=== PATIENT | male | born 1960 | race Caucasian/White ===

== ENCOUNTER 2017-12-02 09:37 | Day surgery (SDC) | payer OTHER ==
[2017-12-02] MEDS ORDERED: MIDAZOLAM 2 MG/2 ML VIAL IVP ONE (09:47)
[2017-12-02] MEDS ORDERED: BENZOCAINE UNIT DOSE SPRAY HURRICAINE MM ONE (09:47)
[2017-12-02] MEDS ORDERED: ATROPINE SULFATE 1 MG/10 ML SYR IVP ONE (09:47)
[2017-12-02] MEDS ORDERED: NS 500 ML IV ONE (09:47)
[2017-12-02] MEDS ORDERED: fentaNYL 100 MCG/2 ML INJ IVP ONE (09:47)
--- NOTE | 2017-12-02 10:10 | CPEKG ---
Heart Rate: 135 RR Interval: 444 QRSD Interval: 98 QT Interval: 292 QTC Interval: 438 QRS [place]: 63 T Wave [place]: 257 EKG Severity - ABNORMAL ECG - EKG Impression: JUNCTIONAL TACHYCARDIA EKG Impression: REPOL ABNRM SUGGESTS ISCHEMIA, ANT-LAT LEADS Electronically Signed By: Prasanth Calles 03-Dec-2017 07:41:09
[2017-12-02 11:01] LABS: INR 1.31 (0.83-1.16); PROTIME(PATIENT) 16.5 SEC (12.0-15.0)
--- NOTE | 2017-12-02 12:04 | PDANEPAE ---
ANE History of Present Illness 57 year olkd with tachycardia ANE Past Medical History - Pulmonary History Hx Sleep Apnea: No ANE Review of Systems Review of systems is: negative Review of Systems: ANE Patient History - Allergies Allergies/Adverse Reactions: No Known Allergies Allergy (Unverified 12/02/17 06:37) - Home Medications Home Medications: Atorvastatin Calcium 20 mg PO DAILY 12/02/17 [Last Taken 12/01/17 21:00] DILTIAZEM ER 240 mg PO DAILY 12/02/17 [Last Taken 12/02/17 08:00] Eliquis 5 mg PO BID 12/02/17 [Last Taken 12/02/17 08:00] Fish Oil Concentrate Softgel 1,000 mg PO DAILY 12/02/17 [Last Taken 11/30/17 08: 00] Multivitamins 1 tab PO DAILY 12/02/17 [Last Taken 11/30/17 08:00] Ocuvite Adult 50 Plus Softgel 1 tab PO DAILY 12/02/17 [Last Taken 11/30/17 08:00 ] Osteo Bi-Flex Caplet 1 tab PO DAILY 12/02/17 [Last Taken 11/30/17 08:00] Probiotic 1 cap PO DAILY 12/02/17 [Last Taken 11/30/17 08:00] - Smoking Hx Smoking Status: Never smoked ANE Labs/Vital Signs - Labs Result Diagrams: 12/02/17 10:10 - Vital Signs Height: 183 cm Weight: 91.2 kg ANE Physical Exam - Airway Neck exam: FROM Mallampati Score: Class 1 Mouth exam: normal dental/mouth exam - Pulmonary Pulmonary: no respiratory distress - Cardiovascular Cardiovascular: regular rate and rhythym - ASA Status ASA Status: II ANE Anesthesia Plan Anesthesia Plan: MAC
[2017-12-02] MEDS ORDERED: PROPOFOL 200 MG/20 ML VIAL ONE (12:06)
[2017-12-02] MEDS ORDERED: fentaNYL 100 MCG/2 ML INJ ONE (12:06)
--- NOTE | 2017-12-02 12:24 | PDHPUP ---
History & Physical Update H&P update statement: This history and physical update is based on an assessment of the patient which was completed after admission or registration (within 24 hours), but prior to the surgery/procedure. 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 all ? asked H&P update: H&P reviewed & patient examined H&P changes: none
--- NOTE | 2017-12-02 12:48 | CPEKG ---
Heart Rate: 87 RR Interval: 690 P-R Interval: 180 QRSD Interval: 86 QT Interval: 424 QTC Interval: 510 P [place]: 58 QRS [place]: 55 T Wave [place]: 66 EKG Severity - ABNORMAL ECG - EKG Impression: SINUS RHYTHM EKG Impression: SUPRAVENTRICULAR BIGEMINY EKG Impression: NONSPECIFIC T ABNORMALITIES, ANT-LAT LEADS EKG Impression: BORDERLINE PROLONGED QT INTERVAL Electronically Signed By: Prasanth Calles 03-Dec-2017 07:41:09
--- NOTE | 2017-12-02 13:08 | GCON ---
[f rep st] CONSULTATION CARDIOLOGY CONSULTATION REASON FOR CONSULTATION: Atrial flutter. PROCEDURE: Cardioversion. DISCUSSION: I discussed with the patient doing a cardioversion electively for his atrial flutter. We discussed the options. We discussed doing a transesophageal echocardiogram. He did not want to d o that. He has not missed any Eliquis dose for a very long time and feels like he does not need a tr ansesophageal echocardiogram. He understood the options and benefits and wanted to proceed without t hat. DESCRIPTION OF PROCEDURE: Informed consent was given. Anesthesia was present. A time-out was done and then we proceeded to do a synchronized cardioversion with 200 watt seconds of atrial flutter conv erting to normal sinus rhythm. There were no complications. The patient is waking up at this time. /[id number]/MODL
== END 2017-12-02 13:55 | disposition home or self-care (01) ==
LOC: FCATH 09:37
PROVIDERS: ATTEND Internal Medicine
PROC: 5A2204Z Restoration of Cardiac Rhythm, Single (ICD-10-PCS; principal; 2017-12-02)
DX: I48.91 Unspecified atrial fibrillation (principal); I48.92 Unspecified atrial flutter
CPT/HCPCS: J0461; J2704; J3010

== ENCOUNTER 2017-12-03 01:42 | Inpatient (IN) | payer OTHER ==
--- NOTE | 2017-12-03 01:58 | CPEKG ---
Heart Rate: 108 RR Interval: 556 P-R Interval: 180 QRSD Interval: 86 QT Interval: 324 QTC Interval: 435 P [place]: 60 QRS [place]: 74 T Wave [place]: 62 EKG Severity - BORDERLINE ECG - EKG Impression: SINUS TACHYCARDIA EKG Impression: PROBABLE LEFT ATRIAL ABNORMALITY EKG Impression: BORDERLINE T WAVE ABNORMALITIES Electronically Signed By: Prasanth Calles 03-Dec-2017 07:41:09
[2017-12-03] MEDS ORDERED: NS 1,000 ML IV ONE (02:02)
--- NOTE | 2017-12-03 02:02 | EDPHY ---
H & P Stated Complaint: SOB, D/C'd today after cardioversion from A-fib. Time Seen by Provider: 12/03/17 02:02 HPI/ROS: HPI CHIEF COMPLAINT: Shortness of breath. HISTORY OF PRESENT ILLNESS: This patient very pleasant 57-year-old male, he has a history of AFib, he is on Eliquis, he was cardioverted today around noon and was discharged around 2 o'clock in the afternoon. He rested today. He went to sleep around 8:30 p.m. And woke up around 11 o'clock feeling short of breath. States he was slightly anxious he went upstairs to check his pulse rate was 115. Clayton more short of breath and he could catch his breath so decided come the emergency room. Denies any chest pain. Denies fever. He does endorse a non productive cough has gotten worse today. Of note upon arrival to the emergency room is vitals heart rate 115, pulse ox 88 % on room air. Past Medical History: Atrial fibrillation status post cardioversion today. Past Surgical History: No significant surgical history Social History: Denies drugs alcohol tobacco. Family History: Noncontributory ROS REVIEW OF SYSTEMS: A comprehensive 10 point review of systems is otherwise negative aside from elements mentioned in the history of present illness. Exam Constitutional appears well nontoxic, triage nursing summary reviewed, vital signs reviewed, awake/alert. Eyes normal conjunctivae and sclera, EOMI, PERRLA. HENT normal inspection, atraumatic, moist mucus membranes, no epistaxis, neck supple/ no meningismus, no raccoon eyes. Respiratory good breath sounds bilaterally, bronchitic sounding cough, clear to auscultation bilaterally, normal breath sounds, no respiratory distress, no wheezing. Cardiovascular rate normal, regular rhythm, no murmur, no edema, distal pulses normal. Gastrointestinal soft, non-tender, no rebound, no guarding, normal bowel sounds, no distension, no pulsatile mass. Genitourinary no CVA tenderness. Musculoskeletal no midline vertebral tenderness, full range of motion, no calf swelling, no tenderness of extremities, no meningismus, good pulses, neurovascularly intact. Skin pink, warm, & dry, no rash, skin atraumatic. Neurologic awake, alert and oriented x 3, AAOx3, moves all 4 extremities equally, motor intact, sensory intact, CN II-XII intact, normal cerebellar, normal vision, normal speech. Psychiatric normal mood/affect. Heme/Lymph/Immune no lymphadenopathy. Differential diagnosis includes but is not limited to: ACS, atypical chest pain , pneumothorax, pneumonia, pulmonary embolism, aortic dissection, congestive heart failure, tumor, musculoskeletal pain, esophageal pain, GERD, peptic ulcer disease, pancreatitis Medical Decision Making: Plan for this patient IV establishment full media monitor obtain EKG to rule out acute coronary syndrome, chest x-ray to rule out pneumothorax, D-dimer,, electrolytes, gentle IV hydration and re-evaluate. I did offer him anxiety medicine as he appears anxious however he has declined. Re-evaluation: EKG interpretation by me on record in [employer] system. Impression time of EKG 1:56 a.m., sinus tachycardia rate of [address] elevation no ST depression no significant T-wave abnormalities. When compared to his EKG on 12/02/2017 at 12:46 p.m. slightly changed as his previous EKG had T-wave inversions V1 V2 V3. V4 and V5. This was a post cardioversion EKG. The EKG prior to that dated at 10:08 a.m. shows a atrial flutter rhythm. Patient chest x-ray reviewed shows significant cardiomegaly and pulmonary edema. The IV fluids initially ordered have been stopped. Patient be ordered Lasix. Waiting on blood work 316; patient's x-ray reviewed shows cardiomegaly and pulmonary edema. I have ordered the patient IV Lasix 40 mg. Patient be admitted to the hospital for hypoxia, CHF. Unclear cause of CHF his negative D-dimer nonischemic EKG. Negative troponin. Updated patient. Agrees for admission. 0327: Spoke with the hospitalist service Dr. Marques agrees to admit. 40MG IV lasix ordered. PAtient updated. Agrees for admission. 0335AM: Spoke with Dr. Clemente with Cards. Will see and evaluate patient. Source: Patient - Personal History Current Tetanus/Diphtheria Vaccine: Yes Current Tetanus Diphtheria and Acellular Pertussis (TDAP): Yes - Medical/Surgical History Hx Asthma: No Hx Chronic Respiratory Disease: No Hx Diabetes: No Hx Cardiac Disease: Yes Hx Renal Disease: No Hx Cirrhosis: No Hx Alcoholism: No Hx HIV/AIDS: No Hx Splenectomy or Spleen Trauma: No Other PMH: A-fib, high cholesterol - Social History Smoking Status: Never smoked Constitutional: Initial Vital Signs Temperature (C) 36.5 C 12/03/17 01:45 Heart Rate 113 H 12/03/17 01:45 Respiratory Rate 17 12/03/17 01:45 Blood Pressure 128/89 H 12/03/17 01:45 O2 Sat (%) 89 L 12/03/17 01:45 O2 Delivery Mode Room Air O2 (L/minute) 2 Allergies/Adverse Reactions: No Known Allergies Allergy (Unverified 12/02/17 06:37) Home Medications: Medication Instructions Recorded Apixaban [Eliquis] 5 mg PO BID 12/02/17 Atorvastatin Calcium [Lipitor 20 20 mg PO HS 12/02/17 mg (*)] C/E/Zn/Cu/OM3/DHA/EPA/LUT/ZEAX 1 each PO DAILY 12/02/17 [Preservision Areds 2 Softgel] Diltiazem HCl [Cartia XT 240mg] 240 mg PO DAILY 12/02/17 Multivitamins [Multivitamin (*)] 1 each PO DAILY 12/02/17 Marion-3 Fatty Acids [Fish Oil 1000 1,000 mg PO DAILY 12/02/17 mg (*)] Herbals/Supplements -Info Only 1 ea PO DAILY 12/03/17 Medical Decision Making - Data Points Laboratory Results: Laboratory Results 12/03/17 02:00 12/04/17 03:49 Medications Given: Acetaminophen (Tylenol) 650 mg PO Q4HRS PRN PRN Reason: Pain, Mild/Fever, Can Take PO Stop: 06/01/18 04:21 Last Admin: 12/05/17 11:39 Dose: 650 mg Amiodarone HCl (Amiodarone Hcl) 200 mg PO BID [facility] Stop: 06/03/18 20:59 Last Admin: 12/05/17 21:01 Dose: 200 mg Apixaban (Eliquis) 5 mg PO BID [facility] Stop: 06/01/18 20:59 Last Admin: 12/04/17 08:19 Dose: 5 mg Atorvastatin Calcium (Lipitor) 20 mg PO HS [facility] Stop: 06/01/18 20:59 Last Admin: 12/05/17 21:00 Dose: 20 mg Diltiazem HCl (Cardizem Immediate Release) 30 mg PO Q6HRS [facility] Stop: 06/01/18 17:59 Last Admin: 12/05/17 16:11 Dose: 30 mg Diltiazem HCl (Dilacor Xr) 240 mg PO DAILY [facility] Stop: 06/02/18 08:59 Last Admin: 12/05/17 08:03 Dose: 240 mg Furosemide (Lasix Injection) 40 mg IVP DAILY [facility] Stop: 06/01/18 10:59 Last Admin: 12/05/17 08:06 Dose: 40 mg Lisinopril (Zestril) 2.5 mg PO HS [facility] Stop: 06/02/18 20:59 Last Admin: 12/04/17 20:54 Dose: 2.5 mg Pqcgd-9-Qeuw Ethyl Esters (Fish Oil) 1,000 mg PO DAILY [facility] Stop: 06/02/18 08:59 Last Admin: 12/05/17 08:03 Dose: 1,000 mg Potassium Chloride (Klor-Con) 20 meq PO DAILY [facility] Stop: 06/01/18 10:59 Last Admin: 12/05/17 08:03 Dose: 20 meq Senna/Docusate Sodium (Senokot-S) 1 - 2 tab PO BID [facility] PRN Reason: Protocol Stop: 06/03/18 20:59 Last Admin: 12/05/17 21:02 Dose: Not Given Discontinued Medications Apixaban (Eliquis) 5 mg PO BID [facility] Stop: 06/01/18 08:59 Last Admin: 12/03/17 08:34 Dose: 5 mg Diltiazem HCl (Cardizem Er Q24hr) 240 mg PO DAILY [facility] Stop: 06/01/18 08:59 Last Admin: 12/03/17 08:34 Dose: 240 mg Furosemide (Lasix Injection) 40 mg IVP EDNOW ONE Stop: 12/03/17 02:50 Last Admin: 12/03/17 02:52 Dose: 40 mg Furosemide (Lasix) 20 mg PO ONCE ONE Stop: 12/03/17 18:46 Last Admin: 12/03/17 18:41 Dose: 20 mg Sodium Chloride (Ns) 1,000 mls @ 0 mls/hr IV EDNOW ONE; Wide Open PRN Reason: Protocol Stop: 12/03/17 02:03 Last Admin: 12/03/17 02:06 Dose: 1,000 mls Amiodarone HCl (Amiodarone Hcl) 200 mls @ 33.333 mls/hr IV ONCE ONE Stop: 12/04/17 15:44 Last Admin: 12/04/17 10:21 Dose: 200 mls Amiodarone HCl (Amiodarone Hcl) 100 mls @ 600 mls/hr IV ONCE ONE Stop: 12/04/17 09:33 Last Admin: 12/04/17 10:17 Dose: 100 mls Amiodarone HCl 540 mg/ (Dextrose) 300 mls @ 16.667 mls/hr IV ONCE ONE Stop: 12/05/17 10:14 Last Admin: 12/04/17 16:15 Dose: 300 mls Metoprolol Tartrate (Lopressor) 25 mg PO BID [facility] Stop: 06/02/18 08:59 Last Admin: 12/04/17 10:09 Dose: Not Given Departure - Departure Disposition: [facility] Acute Clinical Impression: Hypoxia CHF (congestive heart failure) Qualifiers: Heart failure type: other Qualified Code(s): I50.9 - Heart failure, unspecified Condition: Fair
[2017-12-03 02:20] LABS: CREATINE KINASE 78 IU/L (0-224)
[2017-12-03 02:23] LABS: PLATELET COUNT 192 10^3/uL (150-400)
[2017-12-03 02:31] LABS: PROTIME(PATIENT) 16.4 SEC (12.0-15.0)
[2017-12-03] MEDS ORDERED: FUROSEMIDE 40 MG/4 ML VIAL IVP ONE (02:49)
[2017-12-03] MEDS ORDERED: ACETAMINOPHEN 325 MG TAB PO PRN (04:22)
[2017-12-03] MEDS ORDERED: ONDANSETRON 4 MG/2 ML VIAL IVP PRN (04:22)
--- NOTE | 2017-12-03 05:25 | GHP ---
[f rep st] HISTORY AND PHYSICAL DATE OF ADMISSION: 12/03/2017 SOURCE: Patient provides history, appears reliable. His is at bedside and supplements details. EMR was reviewed and case discussed with ED provider. CHIEF COMPLAINT: Shortness of breath. HISTORY OF PRESENT ILLNESS: This is a 57-year-old gentleman with past medical history significant for atrial fibrillation, on anticoagulation with Eliquis, hyperlipidemia, who presents to the emergency department today with complaints of sudden onset of shortness of breath, increased anxiety, palpitations. Patient reports that he underwent a cardioversion earlier in the day with Dr. Brody Ho. The patient underwent the procedure between 10 and noon. Cardioversion was successful and patient converted to normal sinus rhythm with a rate in the low 200s. Patient reports that he was feeling well shortly after his procedure and upon discharge. Patient was in his normal state of health until approximately 11:30 when he found that he was having more difficulty sleeping than normal. Patient states he got up, went to go watch TV and when he went to walk up the stairs to go back to bed he developed sudden onset of shortness of breath and possibly some palpitations along with anxiety. Patient noted that his heart rate was in the 1-teens or more. He denies any associated chest pain. He did experience a brief incidence of some lightheadedness while going up the stairs, but otherwise did not have any syncope or presyncopal episode. Patient denies any associated edema. He has had a chronic dry cough for the past 3 months, which has not changed post procedure. He denies any positional association with his cough. Patient was previously on an BARBI, which was discontinued some time ago. His reports that when he is asleep he does not have intermittent coughing. He denies any associated fevers, chills. No recent sick contacts. REVIEW OF SYSTEMS: Negative except for a headache that patient developed after 5 p.m., now resolved. Otherwise, review of systems is negative. ALLERGIES: No known drug allergies. HOME MEDICATIONS: Eliquis 5 mg p.o. twice daily, diltiazem 240 mg p.o. daily ER form and atorvastatin 20 mg at nighttime. PAST MEDICAL HISTORY: Significant for atrial fibrillation status post cardioversion on 12/02/2017, hyperlipidemia. PAST SURGICAL HISTORY: Significant for ankle surgery. FAMILY HISTORY: Father with history of CAD at an elderly age, 81. Mother with history of CVA. SOCIAL HISTORY: Patient is . He predominantly resides in [place] with his . He does drink 2 glasses of wine every evening, but no use of illicit drugs or tobacco. CODE STATUS: Full. PHYSICAL EXAMINATION: VITAL SIGNS: Upon arrival to the emergency department this morning, blood pressure 128/89, heart rate 113, respiratory rate 17, O2 saturation 88% to 89% on room air with temperature 36.5. Current vitals; blood pressure 114/82, heart rate 103, respiratory rate 20, O2 saturation 92% on 3 L by nasal cannula. GENERAL: No acute distress, very pleasant adult gentleman with his at bedside. He is sitting on the gurney, is interactive, occasionally sarcastic. HEAD: Normocephalic, atraumatic. EYES: Extraocular muscles are intact. Pupils equal, round, react to light bilaterally and symmetric. No scleral icterus or conjunctival injection. Patient is wearing glasses. ENT: Mucous membranes appear moist. No oropharyngeal erythema or exudates. Dentition is intact. No nasal discharge. NECK: Supple. Trachea midline. CV: Regular rate and rhythm. Slightly tachycardic in the low 100s. Regular rhythm. No murmurs, rubs, or gallops. Slightly distant heart sounds. RESPIRATORY: Unlabored breathing. Patient with significantly reduced air movement in all lung [place] and this could possibly be related to some decreased inspiratory effort, but no wheezes or rhonchi are appreciated, possibly a few rales on the left lower base intermittently. ABDOMEN: Soft, nontender to palpation. No rebound, guarding, or masses appreciated. : No suprapubic tenderness to palpation. No Correia catheter in place. EXTREMITIES: Patient without any cyanosis, clubbing, or edema appreciated. Patient with 2+ pedal pulses bilaterally and symmetric. NEURO: Grossly nonfocal. No facial drooping. Moves all extremities. Strength intact. PSYCH: Affect slightly flat but patient is overall interactive and appropriate. Thought process, content, and questions are appropriate. LABORATORY STUDIES: WBC 7.46, H and H 15.4 and 45.8, MCV of 97.0, platelet count is 192, neutrophil percent 68.3. No bands. PT is 16.4, INR 1.30, PTT is 27.5. D-dimer is less than 0.027. Sodium is 143, potassium 4.3, chloride 110, CO2 is 23, anion gap 10, BUN 25, creatinine 0.9, GFR greater than 60, glucose is 120, calcium 9.0, magnesium 2.0 , total bilirubin 0.9, ALT 72, AST 34, alkaline phosphatase 83. CK 78, CK-MB is 2.07. Troponin 0.016. BTNP is 17.10. Total protein 6.4, albumin is 4.1, and lipase is 6.2. Images and reports reviewed including a chest x-ray showing cardiomegaly with pulmonary vascular congestion and evidence of fluid overload. No effusions or consolidations. EKG reviewed myself including those from earlier in the day during patient's cardioversion showing sinus tachycardia in the low 100s. Patient without any acute ST changes, some T-wave flattening in the lateral leads. QTc is 435. EKG from preprocedural in the morning showing atrial flutter, rate in the 130s with re-pole changes, post cardioversion is in normal sinus rhythm in the 80s with some bigeminy. Again, T-wave flattening is noted in the anterolateral leads. QTc is 510. ASSESSMENT AND PLAN: This is a very pleasant 57-year-old gentleman with longstanding history of atrial fibrillation/flutter status post cardioversion earlier in the day, who presents with complaints of dyspnea and palpitations. 1. Acute congestive heart failure NOS, likely secondary to uncontrolled atrial fibrillation. Patient has noted cardiomegaly. He reports that he had a recent echocardiogram completed outpatient at [facility]. Cardiology is consulted from the emergency department. Will plan to see the patient in the morning. Patient received Lasix 40 mg and has been continued to have good urine output, so will hold off on additional ordering of Lasix and await Cardiology recommendations. Also, will not add an order for a brand-new echo as I am not able to access outpatient records and will allow Cardiology time to evaluate and decide on echocardiogram. Patient reports that his respiratory status has improved and he continues to have good urine output. 2. Hypoxia. Patient did have low decreased oxygen 88% to 89% in the emergency department, has required some supplementation to maintain sats greater than 90. Will continue to titrate as patient voids and symptoms are improving. Patient 's D-dimer is negative and no evidence of acute PE at this time. Patient does have some evidence of pulmonary edema and continue with diuresis as noted above. 3. History of atrial fibrillation s/p cardioversion yesterday. Patient currently remains in normal sinus rhythm. He will be monitored on telemetry closely. Will plan to monitor continue patient's Eliquis dosing in the morning as patient states he took his evening dose. Will also resume patient's diltiazem. Cardiology consultation as noted above. 4. Hyperlipidemia. Patient took his evening statin and will plan to continue if he should stay additional day. 5. Fluid, electrolyte, nutrition. Patient did receive a little bit of IV fluid in the emergency department before all studies were turned. This was subsequently discontinued and patient has been doing well following Lasix. Electrolytes will be monitored and replaced if needed. A cardiac diet has been ordered. 6. Code status is full. 7. Disposition. Patient has been admitted to observation status on the PCU at this time pending further recommendations and evaluation by Cardiology. /[id number]/MODL MTDD
[2017-12-03] MEDS ORDERED: APIXABAN 5 MG TAB PO SCH (09:00)
[2017-12-03] MEDS ORDERED: DILTIAZEM CD 120 MG CAP PO SCH (09:00)
--- NOTE | 2017-12-03 11:41 | CPEKG ---
Heart Rate: 106 RR Interval: 566 P-R Interval: 176 QRSD Interval: 88 QT Interval: 332 QTC Interval: 441 P [place]: 62 QRS [place]: 90 T Wave [place]: 83 EKG Severity - ABNORMAL ECG - EKG Impression: SINUS TACHYCARDIA EKG Impression: ATRIAL PREMATURE COMPLEX EKG Impression: PROBABLE LEFT ATRIAL ABNORMALITY EKG Impression: BORDERLINE RIGHT AXIS DEVIATION EKG Impression: NONSPECIFIC T ABNORMALITIES, ANT-LAT LEADS SUGGESTIVE OF ISCHEMIA Electronically Signed By: Joseph Pina 03-Dec-2017 16:18:19
[2017-12-03] MEDS: FUROSEMIDE 40 MG/4 ML VIAL IVP SCH (11:45)
[2017-12-03] MEDS: POTASSIUM CL 20 MEQ TAB PO SCH (11:45)
--- NOTE | 2017-12-03 12:08 | GCON ---
[f rep st] CONSULTATION CARDIOVASCULAR CONSULTATION REASON FOR CONSULTATION: Shortness of breath. HISTORY OF PRESENT ILLNESS: Patient was admitted to the hospital last night with shortness of breath. He had a cardioversion yesterday from atrial flutter to normal sinus rhythm. His lungs were clear at that time. He got up in the middle of the night and had marked shortness of breath. He had a cardioversion. He did very well with that and then what happened to him was he came to the hospital about 12:30 in the morning with shortness of breath. He woke up maybe at 11:30 or 10:30, could not sleep for an hour or so, and then when he came back downstairs to go to sleep, he had shortness of breath and felt poorly. His brought him to the emergency room. He had 45 minutes of shortness of breath in total. He has had a chronic cough for several months, but had no fever, chills, cough. No chest pain, chest tightness, jaw pain, arm pain. No atrial fibrillation or flutter. No tachycardia. No palpitations. No lightheadedness, dizziness. No pleuritic chest pain. No nausea, vomiting, diarrhea, or constipation. No signs of upper respiratory tract infection. No hot, swollen joints. No rashes. No arthralgias. He has not had any trauma to the head, neck, or chest. No complications from his cardioversion. He has been on Eliquis and diltiazem and taking his medicines and doing quite well. He is feeling much better and after 45 minutes, the shortness of breath went away. He has known hyperlipidemia. He has a history of atrial flutter, atrial fibrillation. He had had a history of intermittent atrial fibrillation and has been on Eliquis since 06/2017, has not missed any doses. We have been talking about doing a cardioversion for a while and he decided to finally come in and get one done which we did do. I had talked to him about an electrophysiology consultation and he was not interested in that in the past. He had an echocardiogram that was relatively unremarkable in February of 2017. He had a nuclear stress test which was excellent. Ejection fraction was normal on both studies. CARDIAC RISK FACTORS: Negative for hypertension, diabetes mellitus. FAMILY HISTORY: , known coronary artery disease, smoking, hyperuricemia, obesity. . No history of unexplained sudden at a young age. SURGICAL HISTORY: No significant surgery. REVIEW OF SYSTEMS: 10-point review of systems negative except as noted above. ALLERGIES: None. MEDICATIONS: Atorvastatin, diltiazem ER 240, Eliquis 5 b.i.d., Ocuvite, multivitamins, probiotic. SOCIAL HISTORY: He lives with his and they are selling a home in [place] and selling a home in [place] and buying a home in [place]. He does not smoke. He does not drink significant amounts of alcohol. He works for [employer] and he likes to ski and is very active. PHYSICAL EXAMINATION: VITAL SIGNS: Blood pressure 120/70, heart rate 102 and regular, respiratory rate 12. He is on room air with a 91% sat. LUNGS: Rhonchi bilaterally. No rales, wheezing, or dullness. CARDIOVASCULAR: S1, S2. Soft systolic murmur left sternal border. No diastolic murmur. No S3, S4. No rubs. ABDOMEN: Soft, nontender, without masses. EXTREMITIES: No edema, inflammation, or ulceration. Calves negative. SKIN: Age-related changes. PSYCH: No obvious anxiety or depression. Echocardiogram on February 13 showed normal RV pressure, ejection fraction 65, normal LV systolic function. No significant valvular abnormalities. Mild tricuspid regurgitation. Nuclear stress test at that time, where he treadmill exercised for 15 minutes, showed no abnormalities whatsoever and an ejection fraction of 16%. David treadmill score 15. Chest x-ray shows pulmonary edema. D-dimer is negative. No elevated white count. No anemia and his other labs are attached. ASSESSMENT AND PLAN: 1. Acute pulmonary edema. 2. Atrial flutter. 3. Dyslipidemia. 4. Shortness of breath. 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 The cause is not clear by any means. There is nothing to suggest pulmonary embolic disease by history or by physical findings and the D-dimer is negative. There is nothing to suggest significant infection, pneumonia, viral infection causing his acute shortness of breath. Nothing to suggest endocarditis in his history. There is nothing to suggest an acute coronary syndrome and his David treadmill score less than a year ago was 15 with a normal nuclear study. At this point in time, we will repeat his echocardiogram. We will repeat his EKG. We will give him intravenous Lasix today and possibly tomorrow. I will add enalapril when he stabilizes a little bit and has some more urine output if his blood pressure maintains and is fine. We will see what his left ventricular dimensions, valvular function, and systolic and diastolic function are on the repeat echo that we have ordered. I will not add a beta giovanna. He is on diltiazem. He took a beta giovanna before and felt poorly. He is tachycardic right now and we will watch for the reason for that. He is not anemic. He is not bleeding. There is nothing to suggest a significant infection. We will follow him very closely. If anything changes or he deteriorates, we will be able to appropriately respond as needed. I spent a significant amount of time on multiple occasions in the room with his and he answering their questions. All their questions have been answered. Thank you very much. /[id number]/MODL MTDD
--- NOTE | 2017-12-03 14:29 | ECHO ---
[email or web address] [address] [address] Main: [phone] Fax: Transthoracic Echocardiogram Name: AMI DALY MR#: [id number] Study Date: 12/03/2017 Study Time: 11:08 AM Date of : 1960 Age: 57 year(s) Height: 188 cm (74 in.) Weight: 91.17 kg (201 lb.) BSA: 2.18 m2 Gender: Male Examination: Echo Indication: Acute CHF Image Quality: Contrast: Requested by: Anton Ho BP: 104 mmHg/82 mmHg Heart Rate: Rhythm: Indication: Acute CHF Procedure Staff Flight Technician: Niru Palma RDCS Reading Physician: [place] MD Requesting Provider: Conclusions: Mildly dilated left ventricle. The ejection fraction is estimated to be 40-45 %. The left atrium is mildly to moderately dilated. Mild to moderate mitral regurgitation. Cannot rule out bicuspid aortic valve. Mild tricuspid regurgitation is present. Measurements: Chambers Valvular Assessment AV/MV Valvular Assessment TV/PV Normal Normal Normal Name Value Range Name Value Range Name Value Range Ao Vidya (2D): 3.2 cm (1.4 cm-2.6 AV meanP mmHg ( - ) TR Vmax: 3.23 mm/s ( - ) cm) MV E Vmax: 0.76 m/s ( - ) TR PGmax: 42 mmHg ( - ) IVSd (2D): 0.5 cm (0.6 cm-1.1 syst. PAP: 47 mmHg ( - ) cm) LVDd (2D): 6.2 cm (4.2 cm-5.9 cm) LVDs (2D): 4.6 cm (2.1 cm-4 cm) LVPWd (2D): 0.8 cm (0.6 cm-1 cm) LVEF (BP): 47 % (>=55 %) EF Range: 40-45 % Continued Measurements: Chambers Valvular Assessment AV/MV Valvular Assessment TV/PV Name Value Name Value Name Value LADs: 4.8 cm MV E/E' Septal: 11.80 CVP (est.): 5 mmHg LADs Lon.8 cm MV E/E' Lateral: 9.00 Patient: AMI DALY Study Date: 12/03/2017 Page 1 of 2 11:08 AM LA Area: 28.3 cm2 Additional Vessels Name Value Ao Ascendin.4 cm Findings: Left Ventricle: Mildly dilated left ventricle. No LV hypertrophy. The ejection fraction is estimated to be 40-45 %. LV inferior/inferoseptal garcia appears hypokinetic.. Right Ventricle: Normal size right ventricle. Left Atrium: The left atrium is mildly to moderately dilated. Atrial septal bowing from left to right. Right Atrium: The right atrium is normal in size. Mitral Valve: The mitral valve is normal in appearance and function. Mild to moderate mitral regurgitation. Aortic Valve: Minimal aortic cusp calcification is noted. Cannot rule out bicuspid aortic valve. Tricuspid Valve: The tricuspid valve is normal in appearance and function. Mild tricuspid regurgitation is present. The pulmonary artery pressure is mildly increased. RVSP is 47mmHG.. Pulmonic Valve: The pulmonic valve is normal in appearance and function. Mild pulmonic valve regurgitation is noted. Aorta: The aorta is normal. Pericardium: No pericardial effusion. (No Signature Object) Patient: AMI DALY Study Date: 12/03/2017 Page 2 of 2 11:08 AM [id number]
--- NOTE | 2017-12-03 16:00 | ASMTCMCOM ---
CM Note CM Note Notes: Patient admitted for shortness of breath following cardioversion. He has a history of A fib and is anticoagulated on Eliquis. He is being monitored with EKG and IV lasix. Patient is normally very independent and active, lives with between [place] and the [facility]. I do not anticipate any discharge needs, but Case Management available should they arise. Date Signed: 12/03/2017 03:59 PM Electronically Signed By:Monica Monsalve RN
--- NOTE | 2017-12-03 16:35 | HOSPPROG ---
Hospitalist Progress Note Assessment/Plan: EVENING HOSPITALIST ROUNDS ON ADMISSION DAY DIAGNOSES: -acute congestive heart failure with pulmonary edema and enlargement of cardiac silhouette -uncontrolled atrial fibrillation rate -new systolic dysfunction EF 40-45% by echocardiogram with new inferior hypokinesis At this point the patient comes in with progressive exertional dyspnea symptoms that are fairly intermittent. My take is that because his often checks his pulse when he is feeling exertional dyspnea and finds at high there has been a conclusion that his fast heart rate is actually causing his problems. However they have never checked his pulse rate when he is not having exertional dyspnea and it seems just is likely a perhaps more likely to me that he is having congestive heart failure causing exertional dyspnea or coronary disease causing exertional dyspnea and that he is getting tachycardic at the same time he gets exertional dyspnea. His new wall motion abnormality in significant decrease in ejection fraction are significantly suggestive of some new cardiomyopathy a while it could be caused by AFib with tachycardia I would have expected him to come in with symptoms much sooner with persisting symptoms as opposed to having intermittent episodes like he is describing. PLANS: -continue IV diuresis -I am increasing his diltiazem dose from 240 per day to 360 per day at this time to get better rate control -will review echocardiogram result cardiology -I believe he needs further assessment of his coronary arteries as well as testing of thyroid function. As he had a normal myocardial perfusion imaging study in February eight months ago, I would consider the possibility that he has diffuse coronary disease which could provide a false negative result on myocardial perfusion imaging and that may not be useful way to study him. May need to consider angiography Total of approximately 50 min spent with the patient as at the bedside today in addition to the time previously spent by Dr. Marques today. I reviewed the case earlier in the day before his echocardiogram was done with Dr. Anton Ho SUBJECTIVE: The patient feels notably better after some diuresis here. As I talked to the story with this patient is his says he has been tachycardic with heart rate in the 130s for 3 months. 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 This is a brief episode of exertional dyspnea each time it happens and she sometimes measures his pulse during these episodes and finds it to be rapid. At no other time have they checked his pulse rate. At no other time has he felt exertional dyspnea. 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 He has been doing lots of other activity with no real exertional dyspnea other than the occasional brief episode as described. These episodes are possibly occurring closer together but not more severe or longer lasting. Then he suddenly developed much more significant dyspnea last evening going up some stairs and the symptoms did not resolve prompting his presentation to the ER here. Also notable is that the patient was using metoprolol for heart rate control previously, and a switch from metoprolol to diltiazem a couple weeks ago initially seemed to make him feel better however clearly by last night things were not better in fact much worse than they have ever been. 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 To me his EKGs show some ST and T-wave abnormalities not entirely inconsistent possible ischemia on the 1st EKG, with those changes disappearing on the 2nd EKG. I reviewed his current and prior echocardiogram results and the result of his stress test with myocardial perfusion imaging study from February 2017. The echo and perfusion studies last February showed ejection fraction 60% with no wall motion abnormalities. Today's echocardiogram shows 47% ejection fraction with inferior wall motion abnormality Objective: Vital Signs Temp Pulse Resp BP Pulse Ox 36.8 C 115 H 20 117/77 95 12/03/17 12:14 12/03/17 12:14 12/03/17 12:14 12/03/17 12:14 12/03/17 12:14 12/02/17 12/03/17 12/04/17 06:59 06:59 06:59 Intake Total 1100 2210 Output Total 1950 3150 Balance -850 -940 PT 16.4 SEC (12.0-15.0) H 12/03/17 02:00 INR 1.30 (0.83-1.16) H 12/03/17 02:00 ICD10 Worksheet Patient Problems: Problems Problem Status Onset CHF (congestive heart failure) Acute Hypoxia Acute
[2017-12-03] MEDS ORDERED: FUROSEMIDE 20 MG TAB PO ONE (18:45)
[2017-12-03] MEDS: DILTIAZEM 30 MG TAB PO SCH (19:05)
[2017-12-03] MEDS: APIXABAN 5 MG TAB PO SCH (20:00)
[2017-12-03] MEDS: ATORVASTATIN CALCIUM 20 MG TAB PO SCH (20:00)
[2017-12-03] MEDS ORDERED: ATORVASTATIN CALCIUM 20 MG TAB PO SCH (21:00)
[2017-12-03] MEDS ORDERED: DILTIAZEM 25 MG/5 ML VIAL IVP PRN (21:03)
--- NOTE | 2017-12-03 21:03 | CPEKG ---
Heart Rate: 140 RR Interval: 429 QRSD Interval: 84 QT Interval: 324 QTC Interval: 495 QRS [place]: 83 T Wave [place]: 16 EKG Severity - ABNORMAL ECG - EKG Impression: ATRIAL FIBRILLATION EKG Impression: PREMATURE COMPLEX WITH ABERRANT CONDUCTION (HANK PHENOMENON) EKG Impression: BORDERLINE T ABNORMALITIES, ANT-LAT LEADS EKG Impression: BORDERLINE PROLONGED QT INTERVAL EKG Impression: PROBABLE LEFT VENTRICULAR HYPERTROPHY Electronically Signed By: Joseph Pina 04-Dec-2017 09:29:59
[2017-12-04] MEDS: DILTIAZEM 30 MG TAB PO SCH ×5 (00:24→23:10)
[2017-12-04] MEDS: FUROSEMIDE 40 MG/4 ML VIAL IVP SCH (08:19)
[2017-12-04] MEDS: DILTIAZEM XR 240 MG CAP PO SCH (08:19)
[2017-12-04] MEDS: APIXABAN 5 MG TAB PO SCH (08:19)
[2017-12-04] MEDS: POTASSIUM CL 20 MEQ TAB PO SCH (08:19)
[2017-12-04] MEDS: OMEGA-3 FATTY ACIDS 1,000 MG CAP PO SCH (08:20)
--- NOTE | 2017-12-04 08:41 | CPEKG ---
Heart Rate: 149 RR Interval: 403 QRSD Interval: 80 QT Interval: 291 QTC Interval: 458 QRS [place]: 102 T Wave [place]: 9 EKG Severity - ABNORMAL ECG - EKG Impression: ATRIAL FIBRILLATION WITH RAPID VENTRICULAR RESPONSE EKG Impression: RIGHT AXIS DEVIATION EKG Impression: BORDERLINE T ABNORMALITIES, ANTERIOR LEADS EKG Impression: PROBABLE LEFT VENTRICULAR HYPERTROPHY Electronically Signed By: Joseph Pina 04-Dec-2017 09:27:40
[2017-12-04] MEDS ORDERED: METOPROLOL TARTRATE 25 MG TAB PO SCH (09:00)
[2017-12-04] MEDS ORDERED: AMIODARONE HCL 100 ML IV ONE (09:24)
--- NOTE | 2017-12-04 09:24 | HOSPPROG ---
Hospitalist Progress Note Assessment/Plan: DIAGNOSES: -acute congestive heart failure with pulmonary edema and enlargement of cardiac silhouette -uncontrolled atrial fibrillation rate -new systolic dysfunction EF 40-45% by echocardiogram with new inferior hypokinesis This morning and he has evidence of good resolution of his pulmonary edema with no dyspnea and clear lung exam, no peripheral edema. This is despite the fact that he now has atrial fib rate going the 140s to 150s instead of the 110s likely had yesterday, which is despite a notably higher dose of diltiazem started last evening. He was successfully cardioverted a couple days ago but the quickly went back to AFib such that he will not be able to be treated by cardioversion without anterior rhythmic. He does not tolerate the beta blockers and high-dose diltiazem is not effective for rate control with onset of pulmonary edema. Therefore it seems that adding antiarrhythmic is going to be the best choice for him at this point. I reviewed this with Dr. Ho and he agrees that starting amiodarone at this point is going to be important. Additionally as discussed yesterday the patient has new systolic dysfunction and wall motion abnormalities and new onset of pulmonary edema with worsening symptoms at home. This syndrome is suggestive to me of a strong possibility of coronary disease. I reviewed this again with Dr. Ho who agrees that we should assess his coronary disease at some point during his hospital stay. As the patient is stable in terms of his pulmonary edema which is improving and is not having signs of active ischemia or injury at this point, we can delay the coronary assessment until we have his AFib situation controlled or until he starts to have any further ischemic seeming troubles. PLANS: -repeat chest x-ray is pending will probably stop Lasix at this time depending on its appearance, but may need more Lasix particularly if we have a prolonged time getting him to cardioversion -continue diltiazem at 360 mg daily -begin amiodarone with IV bolus protocol -will discuss further with Dr. Ho after he sees the patient today -plan on assessment of his coronaries before he leaves the hospital or at any time if he starts showing more acute evidence of ischemia, Dr. Ho will review but I believe angiography will be the necessarily approach. 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: Currently AFib in the 140s, no ventricular arrhythmias Exam: alert oriented skin warm dry color ok resps not labored lungs clear at this time without rales heart regular abd soft nondistended nontender, bowel sounds present limbs warm, no edema iv site ok 12 lead EKG today I reviewed the tracing; rapid atrial fibrillation, some ST segment abnormalities that are subtle but potentially consistent with rate- related ischemia Laboratory data: Repeat metabolic panel and troponin are normal TSH pending Objective: Vital Signs Temp Pulse Resp BP Pulse Ox 36.7 C 147 H 12 111/86 H 94 12/04/17 04:20 12/04/17 07:21 12/04/17 07:21 12/04/17 07:21 12/04/17 07:21 Laboratory Results 12/04/17 03:49 12/03/17 12/04/17 12/05/17 06:59 06:59 06:59 Intake Total 1100 3740 Output Total 1950 6250 Balance -850 -2510 PT 16.4 SEC (12.0-15.0) H 12/03/17 02:00 INR 1.30 (0.83-1.16) H 12/03/17 02:00 - Time Spent With Patient Time Spent with Patient: greater than 35 minutes Time Spent with Patient: Greater than 35 minutes spent on this patients care, greater than 50% of time spent counseling, educating, and coordinating care regarding the above mentioned plan. ICD10 Worksheet Patient Problems: Problems Problem Status Onset CHF (congestive heart failure) Acute Hypoxia Acute
[2017-12-04] MEDS ORDERED: AMIODARONE HCL 200 ML IV ONE (09:45)
--- NOTE | 2017-12-04 12:13 | SOAPPROG ---
WINTER Progress Note Assessment/Plan: Assessment: Plan: 12/04/17 12:08 1. Heart failure with reduced ejection fraction 2. Acute on chronic congestive heart failure 3. Atrial flutter/atrial fibrillation 4. Shortness of breath 5. Regional wall motion abnormality 6. Dyslipidemia He has now on amiodarone converted to normal sinus rhythm and we will keep him on amiodarone. He is having his Eliquis held and 48 hours will be acceptable to go ahead with coronary angiography. He is having the angiogram because there is some question of on whether not he might have coronary artery disease His nuclear stress test last summer could have been reflective of balanced ischemia. Although he had excellent exercise tolerance and went 15 minutes on the treadmill. What I am personally helping his that his diminution of ejection fraction is due to a persistent tachycardia. However we can't be sure that and because of his risk factors and acute pulmonary edema he is a coronary angiogram so will get that on the schedule for Saturday. Dr. Rodriguez I did talk about whether not we needed to bridge him once the Eliquis starts to wear off before he has angiogram on saturday and felt both of us that he should do okay on being managed for short period of time off full anticoagulation and will be resumed right away after his angiogram or any definitive therapy that is angiogram dictates. He is on a statin. For his cardiomyopathy him to start a low dose of an BARBI-inhibitor tonight at bedtime. We are not using beta blockers which we would like to use with his cardiomyopathy until we started amiodarone he will get some beta-giovanna effect from the amiodarone which is good. But he could not tolerate metoprolol so we do not want start more beta-blockers right at this time for him. We would prefer him because of his heart failure and is possibility of coronary artery disease to be off a calcium channel giovanna for but for now the family and he both want to not switch to more beta-giovanna therapy. I spent a half an hour with the family going over the options and answering all her questions the son the daughter the for there. They are very concerned and the daughter and the are both very worried about him. He had questions that we answered as well and hopefully they are satisfied with the information so far. We will get electrophysiology to see him tomorrow do a consultation about long- term management for his flutter/fib. That order has been placed. He has had a good diuresis on a up to 2500 cc in 24 hours with the Lasix. Subjective: He is feeling well today. Last night in the evening he went back into atrial fibrillation He could feel a fluttering and was aware of what was going on. Earlier in the morning he had been in normal sinus rhythm. He is now in normal sinus rhythm as I am dictating this note he just converted. He had been in atrial fibrillation with rapid ventricular response was on increasing doses of diltiazem and then we on speaking with Dr. Rodriguez we put him on amiodarone. So now he is going to stay on IV loading of amiodarone and he feels okay. He has had no significant chest pain or chest tightness no jaw pain or arm pain No new neurologic symptoms no lightheadedness dizziness No nausea vomiting He is tolerating his current medications well. Objective: Vital Signs Temp Pulse Resp BP Pulse Ox 36.9 C 100 18 113/86 H 94 12/04/17 11:43 12/04/17 11:43 12/04/17 11:43 12/04/17 11:43 12/04/17 11:43 Laboratory Results 12/04/17 03:49 12/03/17 12/04/17 12/05/17 05:59 05:59 05:59 Intake Total 1100 3740 Output Total 1950 6250 Balance -850 -2510 PT 16.4 SEC (12.0-15.0) H 12/03/17 02:00 INR 1.30 (0.83-1.16) H 12/03/17 02:00 Physical Exam - Physical Exam General Appearance: alert, no apparent distress Respiratory: lungs clear, rhonchi Cardiac/Chest: systolic murmur, irregularly irregular, No JVD Abdomen: normal bowel sounds, non-tender, No soft Skin: warm/dry Extremities: No pedal edema, No calf tenderness Neuro/Psych: normal mood/affect ICD10 Worksheet Patient Problems: Problems Problem Status Onset CHF (congestive heart failure) Acute Hypoxia Acute
[2017-12-04] MEDS ORDERED: AMIODARONE HCL 540 MG in D5W 300 ML IV ONE (16:15)
[2017-12-04] MEDS: ATORVASTATIN CALCIUM 20 MG TAB PO SCH (20:55)
[2017-12-04] MEDS ORDERED: LISINOPRIL 2.5 MG TAB PO SCH (21:00)
[2017-12-05] MEDS: DILTIAZEM 30 MG TAB PO SCH ×3 (06:12→16:11)
[2017-12-05] MEDS: DILTIAZEM XR 240 MG CAP PO SCH (08:03)
[2017-12-05] MEDS: POTASSIUM CL 20 MEQ TAB PO SCH (08:03)
[2017-12-05] MEDS: OMEGA-3 FATTY ACIDS 1,000 MG CAP PO SCH (08:03)
[2017-12-05] MEDS: FUROSEMIDE 40 MG/4 ML VIAL IVP SCH (08:06)
--- NOTE | 2017-12-05 09:11 | PDCARPN ---
Cardiology Progress Note Chief Complaint: No cardiovascular complaints were voiced this morning. Assessment/Plan: Assessment: Patient is a 57 y/o male with history of newly noted congestive heart failure ( acute, systolic) with noted reduction in left ventricular systolic function (40- 45%), HLP, and atrial fib/flutter (on Eliquis, [id number] score of 1 for CHF), with ongoing issues related to accelerated heart rates in atrial fibrillation. Patient was cardioverted earlier this week and success was temporary. At present, the patient is in atrial fibrillation (rates of 115-120 bpm). No complaints of chest pains or pressure. No PND or orthopnea. Weights are down in comparison to admission weights. and son were present in the patient's room today. Eliquis is on hold for pending angiogram tomorrow. Ongoing Amiodarone (IV) with completion of load today. Will continue Amiodarone for the time being - this has kept the heart rates down somewhat. EP is reportedly going to see the patient today as well. ACEi therapy continues given the notable reduction in LVEF. Beta blockers have not been well tolerated (less bystolic, but this does little to nothing for rate control with the atrial fib/ flutter appreciated). Plan: (1) Continue hold on Eliquis as at present (2) Angiogram is planned for tomorrow (3) Bowel protocol today (4) Switch from IV Amio to PO Amio (200 twice per day) (5) Continue statins (6) EP consult is pending Subjective: No cardiovascular complaints today. Reviewed/Discussed With: family, hospitalist, multidisciplinary team Objective: Vital Signs (8 Hrs) Temp Pulse Resp BP Pulse Ox 12/05/17 08:03 114 H 12/05/17 07:57 102/64 12/05/17 07:37 36.7 C 95 20 83/69 L 92 12/05/17 06:12 124 H 100/80 12/05/17 03:28 36.4 C 124 H 17 98/73 L 94 Intake/Output (24 Hrs) 12/04/17 12/05/17 12/06/17 05:59 05:59 05:59 Intake Total 3740 2331 500 Output Total 6250 1525 350 Balance -2510 806 150 Intake: Oral (ml) 3740 1775 500 IV Infused (ml) 556 Amiodarone HCl 100 ml @ 100 600 mls/hr IV ONCE ONE Rx #:[id number] Amiodarone HCl 200 ml @ 200 33.333 mls/hr IV ONCE ONE Rx#:[id number] Amiodarone HCl 540 mg In 256 D5w 300 ml @ 16.667 mls/ hr IV ONCE ONE Rx#: [id number] Output: Urine (ml) 6250 1525 350 Toilet 6250 1525 350 Other: Weight 89.2 kg 89.7 kg Intake Quantity Yes Yes Sufficient Number of Voids Toilet 2 Result Diagrams: 12/03/17 02:00 12/04/17 03:49 Cardiac Labs: Cardiac Lab Results (72 Hrs) 12/04/17 03:49 Troponin I < 0.012 Telemetry: Atrial fibrillation with rapid ventricular response Echocardiogram: LVEF 40-45% - Physical Exam Constitutional: WDWN, healthy appearing, no apparent distress Eyes: PERRL, EOMI Ears, Nose, Mouth, Throat: moist mucous membranes Cardiovascular: irregularly irregular, No no murmurs, No no rubs, No no gallops , No systolic murmur, No jugular vein distention Peripheral Pulses: 2+: dorsalis-pedis (R), dorsalis-pedis (L) Respiratory: clear to auscultate bilat, no crackles, no wheezes Gastrointestinal: normoactive bowel sounds Skin: no rashes, no edema Musculoskeletal: no muscular tenderness, no joint effusions Neurologic: AAOx3, CN II-XII grossly intact Psychiatric: cooperative, interactive, following commands ICD10 Worksheet Patient Problems: Problems Problem Status Onset CHF (congestive heart failure) Acute Hypoxia Acute
[2017-12-05] MEDS ORDERED: LACTULOSE 20 GM/30 ML UDCUP PO PRN (09:39)
[2017-12-05] MEDS ORDERED: POLYETHYLENE GLYCOL 3350 17 GM PKT PO PRN (09:39)
[2017-12-05] MEDS ORDERED: MAGNESIUM HYDROXIDE 30 ML UDCUP PO PRN (09:39)
[2017-12-05] MEDS ORDERED: BISACODYL 10 MG SUPP PR PRN (09:39)
--- NOTE | 2017-12-05 17:05 | HOSPPROG ---
Hospitalist Progress Note Assessment/Plan: * Afib -failed cardioversion -rate still poorly controlled despite high dose PO diltiazem and PO amiodarone -uptitration of meds limited by hypotension -EP to consult -Pao on hold for cardiac cath * Acute on chronic systolic CHF - EF 40% -cardiac cath in am for ischemic eval - new inferior HK -may be rate related -BP not tolerating lisinopril - will hold -continue IV lasix * Hyperlipidemia -continue statin Subjective: Sats drop with amubulation and at night. No CP/SOB Objective: Vital Signs Temp Pulse Resp BP Pulse Ox 36.7 C 130 H 16 106/83 H 92 12/05/17 16:09 12/05/17 16:09 12/05/17 16:09 12/05/17 16:09 12/05/17 16:09 12/04/17 12/05/17 12/06/17 05:59 05:59 05:59 Intake Total 300 Output Total 1000 Balance -700 PT 16.4 SEC (12.0-15.0) H 12/03/17 02:00 INR 1.30 (0.83-1.16) H 12/03/17 02:00 tele reviewed - rapid afib CXR from admission reviewed, my personal interpretation is - CHF follow-up CXR reviewed - improved CHF ECHO reviewed - EF 40% Laboratory Tests 12/03/17 12/03/17 12/04/17 02:00 02:00 03:49 D-Dimer < 0.27 Creatinine 0.9 Troponin I 0.016 < 0.012 NT-Pro-B Natriuret Pep 1710 H TSH 12/04/17 03:49 D-Dimer Creatinine Troponin I NT-Pro-B Natriuret Pep TSH 1.550 - Physical Exam Constitutional: no apparent distress, appears nourished, not in pain Cardiovascular: irregularly irregular, tachycardia, No JVD, No edema Respiratory: no respiratory distress, no rales or rhonchi, clear to auscultation Gastrointestinal: normoactive bowel sounds, soft, non-tender abdomen, no palpable masses Skin: no rashes or abrasions, no fluctuance, no induration Neurologic: AAOx3, sensation intact bilaterally Psychiatric: interacting appropriately, not anxious, not encephalopathic, thought process linear ICD10 Worksheet Patient Problems: Problems Problem Status Onset CHF (congestive heart failure) Acute Hypoxia Acute
[2017-12-05] MEDS: ATORVASTATIN CALCIUM 20 MG TAB PO SCH (21:00)
[2017-12-05] MEDS: AMIODARONE HCL 200 MG TAB PO SCH (21:01)
[2017-12-05] MEDS: SENNOSIDES/DOCUSATE SODIUM TAB PO SCH (21:02)
[2017-12-06] MEDS: DILTIAZEM 30 MG TAB PO SCH ×5 (00:18→18:11)
[2017-12-06] MEDS: SENNOSIDES/DOCUSATE SODIUM TAB PO SCH (08:29)
[2017-12-06] MEDS: AMIODARONE HCL 200 MG TAB PO SCH ×2 (08:29→21:03)
[2017-12-06] MEDS: OMEGA-3 FATTY ACIDS 1,000 MG CAP PO SCH (08:29)
[2017-12-06] MEDS: DILTIAZEM XR 240 MG CAP PO SCH (08:29)
[2017-12-06] MEDS ORDERED: LIDOCAINE 1% 300 MG/30 ML SDV ONE (08:41)
[2017-12-06] MEDS ORDERED: IOPAMIDOL (ISOVUE-370) 150 ML BTL IV ONE (08:42)
[2017-12-06] MEDS ORDERED: MIDAZOLAM 2 MG/2 ML VIAL ONE (08:42)
[2017-12-06] MEDS ORDERED: fentaNYL 100 MCG/2 ML INJ ONE (08:42)
--- NOTE | 2017-12-06 09:02 | PDCARPN ---
Cardiology Progress Note Chief Complaint: No cardiovascular complaints over night. Assessment/Plan: Assessment: 12-06-17 Patient doing well today. Consent for angiography was obtained this morning. Risks and benefits of the procedure were discussed with patient and prior to signing of consent. No complaints of chest pains or pressure. Heart rates on telemetry were elevated with the discussion about risks (130-140 bpm). Questions about procedure were addressed. 12-05-17 Patient is a 57 y/o male with history of newly noted congestive heart failure ( acute, systolic) with noted reduction in left ventricular systolic function (40- 45%), HLP, and atrial fib/flutter (on Eliquis, [id number] score of 1 for CHF), with ongoing issues related to accelerated heart rates in atrial fibrillation. Patient was cardioverted earlier this week and success was temporary. At present, the patient is in atrial fibrillation (rates of 115-120 bpm). No complaints of chest pains or pressure. No PND or orthopnea. Weights are down in comparison to admission weights. and son were present in the patient's room today. Eliquis is on hold for pending angiogram tomorrow. Ongoing Amiodarone (IV) with completion of load today. Will continue Amiodarone for the time being - this has kept the heart rates down somewhat. EP is reportedly going to see the patient today as well. ACEi therapy continues given the notable reduction in LVEF. Beta blockers have not been well tolerated (less bystolic, but this does little to nothing for rate control with the atrial fib/ flutter appreciated). Plan: (1) Heart cath this morning (2) Continue statins (3) Will resume Eliquis post angiogram (4) Continue Amiodarone (5) Would like for EP to have a discussion post angiogram with patient (6) Continue therapy on PO CCB (would consider switch to more acceptable dosing , rather than Q6 hour dosing) - aware of issues related to hypotension Further recommendations post angiogram Subjective: No cardiovascular complaints. Reviewed/Discussed With: family Objective: Vital Signs (8 Hrs) Temp Pulse Resp BP Pulse Ox 12/06/17 07:02 36.8 C 130 H 20 115/81 H 95 12/06/17 06:32 98 96/68 L 12/06/17 05:54 98 96/68 L 12/06/17 04:39 36.7 C 101 H 16 96/68 L 95 Intake/Output (24 Hrs) 12/05/17 12/06/17 12/07/17 05:59 05:59 05:59 Intake Total 700 Output Total 2650 Balance -1950 Intake: Oral (ml) 700 Output: Urine (ml) 2650 Toilet 2650 Other: Weight 89.8 kg Intake Quantity npo Sufficient Number of Voids Toilet 3 Number of Stools Toilet 1 Result Diagrams: 12/03/17 02:00 12/06/17 04:23 Telemetry: atrial fibrillation with RVR (to 140 bpm) - Physical Exam Constitutional: WDWN, healthy appearing, no apparent distress Eyes: PERRL, EOMI Ears, Nose, Mouth, Throat: moist mucous membranes Cardiovascular: irregularly irregular (tachycardia), pulses symmetric bilat, No jugular vein distention Peripheral Pulses: 2+: dorsalis-pedis (R), dorsalis-pedis (L) Respiratory: clear to auscultate bilat Skin: no rashes, no edema Musculoskeletal: no muscular tenderness Neurologic: AAOx3, CN II-XII grossly intact Psychiatric: cooperative, interactive, following commands ICD10 Worksheet Patient Problems: Problems Problem Status Onset CHF (congestive heart failure) Acute Hypoxia Acute
--- NOTE | 2017-12-06 09:03 | PDPROPOC ---
Sedation Plan of Care Sedation Plan of Care: vital signs stable, mental status noted, patient educated of risks, benefits, alternatives, patient can tolerate sedation ASA Classification: ASA 2 Planned drugs: fentanyl, midazolam Mallampati Score: Class 2 Mallampati Reference Image: Patient passed 3-3-2 rule?: Yes
[2017-12-06] MEDS ORDERED: NITROGLYCERIN 0.4 MG BTL SL PRN (09:10)
[2017-12-06] MEDS ORDERED: DIAZEPAM 5 MG TAB PO ONE (09:10)
[2017-12-06] MEDS ORDERED: TEMAZEPAM 15 MG CAP PO PRN (09:10)
[2017-12-06] MEDS ORDERED: diphenhydrAMINE 25 MG CAP PO ONE (09:10)
[2017-12-06] MEDS ORDERED: ACETAMINOPHEN 325 MG TAB PO PRN (09:10)
[2017-12-06] MEDS ORDERED: FAMOTIDINE 20 MG TAB PO ONE (09:10)
[2017-12-06] MEDS ORDERED: NS 1,000 ML IV SCH (09:15)
--- NOTE | 2017-12-06 09:57 | PDMN ---
Medical Necessity Medical necessity: Patient meets inpatient criteria per physician note and [facility] Cardiology GRG (uncontrolled atrial fib w/RVR with new acute congestive heart failure and pulmonary edema, new systolic dysfunction EF 40-45% with inf wall hypokinesis by echo; LOS > 2 midnights for ongoing IV Lasix diuresis, IV amiodarone loading, then transition to p.o. amiodarone, additional cardiac eval/ pending angiography.). .
--- NOTE | 2017-12-06 10:44 | PDDXCAT ---
Diagnostic Cath Note - . 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 No luminal irregularities were noted. LAD: Medium sized vessel without appreciable luminal irregularities. One principal diagonal with a smallish second diagonal. No branch vessel CAD noted. LCX: Medium sized vessel with one principal OM (multiple branches) and a smallish OM2. No luminal irregularities were noted. RCA: Dominant vessel. No luminal irregularities were noted. PDA and DOYLE are large and without irregularities as well. Ramus: Smallish vessel with branches. No luminal irregularities were noted. EDP: 18 mm Hg LVEF: 25-30% Wall motion: Global hypokinesis was noted. Complications: none Estimated blood loss: <50ml Closure method: Angioseal Assessment: Patient is a 57 y/o male with questionable duration of atrial fib/ flutter with non ischaemic CMP (angiography without CAD noted), ejection fraction of 25-30%. CHERELLE with cardioversion earlier in the week without retirement success noted. Angiogram, as stated above, without CAD noted. Plan: Would continue Amiodarone, orally, resume Eliquis this afternoon. Patient can eat. Would schedule patient for CHERELLE with possible cardioversion tomorrow morning - rational being (a) would like to have Eliquis on board, and (b) would like to have angiogram stick site with some time of "heal" prior to CHERELLE/ cardioversion. Would continue CCB therapy, but consider BID instead of QID. Statins to continue (with outpatient reassessment of cholesterol and LFTs). I feel that this is the safer approach s/p angiogram - to allow the groin access to have some time to heal prior to subjecting the patient to CHERELLE and possible cardioversion. Intervention: none Patient Problems: Problems Problem Status Onset CHF (congestive heart failure) Acute Hypoxia Acute
[2017-12-06] MEDS ORDERED: HYDROCODONE/APAP 5/325 TAB PO PRN (11:13)
[2017-12-06] MEDS ORDERED: OXYCODONE/APAP 5/325 TAB PO PRN (11:13)
[2017-12-06] MEDS ORDERED: ONDANSETRON 4 MG/2 ML VIAL IVP PRN (11:13)
[2017-12-06] MEDS ORDERED: DIGOXIN 125 MCG TAB PO ONE (11:15)
[2017-12-06] MEDS: POTASSIUM CL 20 MEQ TAB PO SCH (14:27)
[2017-12-06] MEDS: FUROSEMIDE 40 MG TAB PO SCH (14:29)
--- NOTE | 2017-12-06 14:51 | ASMTCMCOM ---
CM Note CM Note Notes: Pts case discussed in morning rounds. Pt had a left heart cath today. The plan remains the same. Pt will d/c independent when medically stable. No therapies ordered at this time. CM available for changes. Plan: Independent Date Signed: 12/06/2017 02:50 PM Electronically Signed By:ADAM Tee
--- NOTE | 2017-12-06 16:25 | CPEKG ---
Heart Rate: 99 RR Interval: 606 P-R Interval: 172 QRSD Interval: 86 QT Interval: 360 QTC Interval: 462 P [place]: 66 QRS [place]: 89 T Wave [place]: 81 EKG Severity - BORDERLINE ECG - EKG Impression: SINUS RHYTHM EKG Impression: BORDERLINE T WAVE ABNORMALITIES EKG Impression: SINUS RHYTHM HAS REPLACED ATRIAL FIBRILLATION NOTED ON PRIOR ECG Electronically Signed By: Guru Pang 07-Dec-2017 09:28:38
--- NOTE | 2017-12-06 17:47 | HOSPPROG ---
Hospitalist Progress Note Assessment/Plan: * Afib -now back NSR - consider cardioversion in am if recurs -PO diltiazem and PO amiodarone -uptitration of meds limited by hypotension - did well with IV digoxin x 1 -outpatient EP consult with Dr. Wiley for ablation -resume Eliquis * Acute on chronic systolic CHF - EF 25% -non-ischemic - likely rate related -restart lisinopril 2.5 mg if BP tolerates -change to PO lasix * Hyperlipidemia -continue statin * Hypotension -DC additional diltiazem as now NSR -consider digoxin if further rate control needed Subjective: No complaints Objective: Vital Signs Temp Pulse Resp BP Pulse Ox 36.3 C 131 H 20 103/82 H 94 12/06/17 15:05 12/06/17 15:05 12/06/17 15:05 12/06/17 15:05 12/06/17 15:05 Laboratory Results 12/06/17 04:23 12/05/17 12/06/17 12/07/17 05:59 05:59 05:59 Intake Total 700 900 Output Total 2650 575 Balance -1950 325 PT 16.4 SEC (12.0-15.0) H 12/03/17 02:00 INR 1.30 (0.83-1.16) H 12/03/17 02:00 d/w Dr. Hampton and Dr. Pang - cardioversion in am if afib cardiac cath report reviewed - no CAD tele - NSR now EKG viewed, my personal interpretation is - NSR - Physical Exam Constitutional: no apparent distress, appears nourished, not in pain Cardiovascular: regular rate and rhythym, no murmur, rub, or gallop Respiratory: no respiratory distress, no rales or rhonchi, clear to auscultation Gastrointestinal: normoactive bowel sounds, soft, non-tender abdomen, no palpable masses Skin: no rashes or abrasions, no fluctuance, no induration Neurologic: AAOx3, sensation intact bilaterally Psychiatric: interacting appropriately, not anxious, not encephalopathic, thought process linear ICD10 Worksheet Patient Problems: Problems Problem Status Onset CHF (congestive heart failure) Acute Hypoxia Acute
[2017-12-06] MEDS: ATORVASTATIN CALCIUM 20 MG TAB PO SCH (21:03)
[2017-12-06] MEDS: APIXABAN 5 MG TAB PO SCH (21:03)
[2017-12-07] MEDS: SENNOSIDES/DOCUSATE SODIUM TAB PO SCH ×2 (01:03→09:11)
[2017-12-07 04:50] LABS: INR 1.25 (0.83-1.16); PROTIME(PATIENT) 15.9 SEC (12.0-15.0)
[2017-12-07] MEDS ORDERED: ATROPINE SULFATE 1 MG/10 ML SYR IVP ONE (06:00)
[2017-12-07] MEDS ORDERED: NS 1,000 ML IV ONE (06:00)
[2017-12-07 07:33] VITALS: BP 100/79; PULSE 96; RESP 16; TEMP 98.4; O2SAT 97
[2017-12-07] MEDS: FUROSEMIDE 40 MG TAB PO SCH (09:09)
[2017-12-07] MEDS: AMIODARONE HCL 200 MG TAB PO SCH (09:09)
[2017-12-07] MEDS: POTASSIUM CL 20 MEQ TAB PO SCH (09:09)
[2017-12-07] MEDS: APIXABAN 5 MG TAB PO SCH (09:09)
[2017-12-07] MEDS: DILTIAZEM XR 240 MG CAP PO SCH (09:10)
[2017-12-07] MEDS: OMEGA-3 FATTY ACIDS 1,000 MG CAP PO SCH (09:10)
--- NOTE | 2017-12-07 10:32 | PDCARPN ---
Cardiology Progress Note Chief Complaint: No cardiovascular complaints today. Fair sleep overnight Assessment/Plan: Assessment: 12-07-17 Patient doing well today. No events overnight. Patient was able to maintain normal sinus rhythm/sinus tachycardia overnight. Ambulation today without elevation to heart rates noted. No PND or orthopnea. No dyspnea (a symptom noted post cardioversion earlier in the week). Angiography revealed no CAD and ongoing suppression of the LVEF. 12-06-17 Patient doing well today. Consent for angiography was obtained this morning. Risks and benefits of the procedure were discussed with patient and prior to signing of consent. No complaints of chest pains or pressure. Heart rates on telemetry were elevated with the discussion about risks (130-140 bpm). Questions about procedure were addressed. 12-05-17 Patient is a 57 y/o male with history of newly noted congestive heart failure ( acute, systolic) with noted reduction in left ventricular systolic function (40- 45%), HLP, and atrial fib/flutter (on Eliquis, [id number] score of 1 for CHF), with ongoing issues related to accelerated heart rates in atrial fibrillation. Patient was cardioverted earlier this week and success was temporary. At present, the patient is in atrial fibrillation (rates of 115-120 bpm). No complaints of chest pains or pressure. No PND or orthopnea. Weights are down in comparison to admission weights. and son were present in the patient's room today. Eliquis is on hold for pending angiogram tomorrow. Ongoing Amiodarone (IV) with completion of load today. Will continue Amiodarone for the time being - this has kept the heart rates down somewhat. EP is reportedly going to see the patient today as well. ACEi therapy continues given the notable reduction in LVEF. Beta blockers have not been well tolerated (less bystolic, but this does little to nothing for rate control with the atrial fib/ flutter appreciated). Plan: (1) Continue statins for HLP (2) Would continue Eliquis for the post conversion (spontaneous) time of one month, and the off chance that the patient will revert to atrial fib/flutter (3) Would continue CCB therapy (long acting and once per day better than the Q6 dosing) (4) Continue Amiodarone at 200 mg twice per day (5) Low dose Digoxin (125 mcg) should continue as at present (6) Would have limited echo next week to reassess LVEF with return to normal sinus rhythm (7) Would have the patient seen by EP next week for discussion about options Subjective: No cardiovascular complaints this morning Reviewed/Discussed With: family, hospitalist, multidisciplinary team Objective: Vital Signs (8 Hrs) Temp Pulse Resp BP Pulse Ox 12/07/17 07:32 36.9 C 96 16 100/79 97 12/07/17 04:00 36.5 C 86 18 95/77 L 94 Intake/Output (24 Hrs) 12/06/17 12/07/17 12/08/17 05:59 05:59 05:59 Intake Total 700 1863 Output Total 2650 1675 Balance -1950 188 Intake: Oral (ml) 700 1563 IV Intake (ml) 300 Output: Urine (ml) 2650 1675 Toilet 2650 1675 Other: Weight 89.8 kg 89.5 kg Intake Quantity npo Yes Sufficient Number of Voids Toilet 3 1 Number of Stools Toilet 1 1 Result Diagrams: 12/03/17 02:00 12/07/17 04:00 Telemetry: Sinus rhythm - Physical Exam Constitutional: WDWN, healthy appearing, no apparent distress Eyes: PERRL, EOMI Ears, Nose, Mouth, Throat: moist mucous membranes Cardiovascular: regular rate and rhythm, no murmurs, no rubs, no gallops, pulses symmetric bilat, No jugular vein distention Peripheral Pulses: 2+: dorsalis-pedis (R), dorsalis-pedis (L) Respiratory: clear to auscultate bilat, no crackles, no wheezes Gastrointestinal: normoactive bowel sounds Skin: no rashes, no edema Musculoskeletal: no muscular tenderness, no joint effusions Neurologic: AAOx3, CN II-XII grossly intact Psychiatric: cooperative, interactive, following commands ICD10 Worksheet Patient Problems: Problems Problem Status Onset CHF (congestive heart failure) Acute Hypoxia Acute
--- NOTE | 2017-12-07 10:46 | ASDISCHSUM ---
Discharge Information Plan Status:Home with No Needs Medically Cleared to Leave: Discharge Date: CM D/C Disposition:Home, Routine, Self-Care ADT D/C Disposition:Home, Routine, Self-Care Projected Discharge Date: Transportation at D/C: Discharge Delay Reason: Follow-Up Date: Discharge Slot: Final Diagnosis: Placement Information Patient Contact Information Contact Name:REYNA Relationship: Address:[address] [place] [address] Work Phone: City:[facility] Phone: State/Zip Code:[place] [address] Email: Financial Information Financial Class:HMO and PPO Plans Primary Plan Desc:[employer] Primary Plan Number:[id number] Secondary Plan Desc: Secondary Plan Number: Assessment Information [facility] Progress Note CM Note CM Note Notes: Patient admitted for shortness of breath following cardioversion. He has a history of A fib and is anticoagulated on Eliquis. He is being monitored with EKG and IV lasix. Patient is normally very independent and active, lives with between [place] and [facility]. I do not anticipate any discharge needs, but Case Management available should they arise. Date Signed: 12/03/2017 03:59 PM Electronically Signed By:Monica Monsalve RN [facility] CM Progress Note CM Note CM Note Notes: Pts case discussed in morning rounds. Pt had a left heart cath today. The plan remains the same. Pt will d/c independent when medically stable. No therapies ordered at this time. CM available for changes. Plan: Independent Date Signed: 12/06/2017 02:50 PM Electronically Signed By:ADAM Tee Intervention Information
--- NOTE | 2017-12-07 10:47 | ASMTCMCOM ---
CM Note CM Note Notes: Pt. to d/c independently today. Date Signed: 12/07/2017 10:46 AM Electronically Signed By:Saadia Joseph LCSW
--- NOTE | 2017-12-07 12:05 | GDS ---
[f rep st] DISCHARGE SUMMARY DISCHARGE DIAGNOSIS: 1. Rapid atrial fibrillation. 2. Acute on chronic systolic congestive heart failure, ejection fraction 25%. 3. Hyperlipidemia. HISTORY: Heath Mann is a 57-year-old male who has long-standing atrial fibrillation. He had a failed cardioversion as an outpatient. He presented with worsening pulmonary edema. He was admitt ed to the hospital and was successfully diuresed with IV Lasix. EF was found to be only 25%. He und erwent a cardiac catheterization which showed normal coronary arteries. His cardiomyopathy is felt t o be rate related. His atrial fibrillation was difficult to control. He continued his usual oral diltiazem dose as well as adding amiodarone. His blood pressures were low and he remained persistently hypotensive in a rap id atrial fibrillation. The plan was for repeat attempt at cardioversion with hope of improved succe ss now that he has been amiodarone loaded. On the night prior to admission, he spontaneously convert ed himself back to normal sinus rhythm and cardioversion was not necessary. He will meet with Dr. Wiley this week for discussion of ablation. For now, he will discharge on oral diltiazem, oral amiodarone and oral digoxin, as well as continuation of his Eliquis. We will attempt to low-dose lisinopril gi griselda his low ejection fraction if his blood pressure can tolerate it. DISCHARGE MEDICATIONS: Please see computerized record for full detailed list. New medications: 1. Amiodarone 200 mg p.o. twice daily. 2. Digoxin 0.125 mg p.o. daily. 3. Lasix 40 mg p.o. daily. 4. Lisinopril 2.5 mg p.o. daily. 5. Potassium 10 mEq p.o. daily. Continued medications include: 1. Eliquis 5 mg p.o. twice daily. 2. Diltiazem 240 mg p.o. daily. 3. Lipitor 20 mg p.o. at bedtime. ADDITIONAL DISCHARGE INSTRUCTIONS: Follow up with Dr. Wiley in 3 to 5 days. TIME SPENT: Greater than 30 minutes' time spent arranging this discharge. Patient was seen and exam ined by me on the day of discharge. /[id number]/MODL
== END 2017-12-07 11:30 | disposition home or self-care (01) | DRG 287 ==
LOC: F2W 04:30 → OBSVTOIN 12-05 10:56
PROVIDERS: ADMIT Family Medicine; ATTEND Internal Medicine
PROC: 4A023N7 Measurement of Cardiac Sampling and Pressure, Left Heart, Percutaneous Approach (ICD-10-PCS; principal; 2017-12-06)
PROC: B2111ZZ Fluoroscopy of Multiple Coronary Arteries using Low Osmolar Contrast (ICD-10-PCS; principal; 2017-12-06)
PROC: B2151ZZ Fluoroscopy of Left Heart using Low Osmolar Contrast (ICD-10-PCS; principal; 2017-12-06)
DX: I50.23 Acute on chronic systolic (congestive) heart failure (principal); I48.91 Unspecified atrial fibrillation; I42.9 Cardiomyopathy, unspecified; E78.5 Hyperlipidemia, unspecified; R09.02 Hypoxemia; Z79.01 Long term (current) use of anticoagulants
CPT/HCPCS: 96374; C1760; G0378; J0282; J1644; J1940; J2250; J3010; Q9967

== ENCOUNTER 2017-12-16 06:44 | Observation (INO) | payer OTHER ==
[2017-12-16] MEDS ORDERED: NS 1,000 ML IV ONE (06:46)
--- NOTE | 2017-12-16 07:09 | CPEKG ---
Heart Rate: 135 RR Interval: 444 P-R Interval: 196 QRSD Interval: 86 QT Interval: 208 QTC Interval: 312 P [place]: 256 QRS [place]: 39 T Wave [place]: 257 EKG Severity - ABNORMAL ECG - EKG Impression: Atrial flutter Electronically Signed By: Silvano Wiley 16-Dec-2017 08:07:06
[2017-12-16 07:21] LABS: PLATELET COUNT 191 10^3/uL (150-400)
[2017-12-16 07:30] LABS: INR 1.05 (0.83-1.16); PROTIME(PATIENT) 13.9 SEC (12.0-15.0)
[2017-12-16] MEDS ORDERED: HEPARIN 10,000 UNIT/10 ML MDV (1,000 UNIT/ML) ONE ×2 (08:10→09:17)
[2017-12-16] MEDS ORDERED: LIDOCAINE 1% 300 MG/30 ML SDV ONE (08:10)
[2017-12-16] MEDS ORDERED: BUPIVACAINE 0.5% 30 ML SDV ONE (08:10)
[2017-12-16] MEDS ORDERED: ISOPROTERENOL HCL/D5W 0.2 MG/50 ML BAG IV ONE (08:11)
[2017-12-16] MEDS ORDERED: MIDAZOLAM 2 MG/2 ML VIAL IVP ONE (08:26)
--- NOTE | 2017-12-16 08:30 | PDANEPAE ---
ANE History of Present Illness CHERELLE flutter ablation ANE Past Medical History - Cardiovascular History Hx Hypertension: No Hx Arrhythmias: Yes Hx Chest Pain: No Hx Coronary Artery / Peripheral Vascular Disease: No Hx CHF / Valvular Disease: No Hx Palpitations: No - Pulmonary History Hx COPD: No Hx Asthma/Reactive Airway Disease: No Hx Recent Upper Respiratory Infection: No Hx Oxygen in Use at Home: No Hx Sleep Apnea: No - Endocrine History Hx Diabetes: No Hypothyroid: No Hyperthyroid: No Obesity: no - Chronic Pain History Chronic Pain: No ANE Review of Systems Review of Systems: - Exercise capacity METS (RN): 4 METS - Systems Constitutional: Reports: no symptoms Respiratory: Reports: other (CHF december 11 Txed with lasix. ) Skin: Reports: rash (Mild rash arms cause unknown) Neurological: Reports: no symptoms ANE Patient History - Allergies Allergies/Adverse Reactions: No Known Allergies Allergy (Unverified 12/02/17 06:37) - Home Medications Home Medications: Apixaban [Eliquis] 5 mg PO BID 12/02/17 [Last Taken 12/13/17] Atorvastatin Calcium [Lipitor 20 mg (*)] 20 mg PO HS 12/02/17 [Last Taken 1 Day Ago ~12/15/17] C/E/Zn/Cu/OM3/DHA/EPA/LUT/ZEAX [Preservision Areds 2 Softgel] 1 each PO DAILY [Last Taken 1 Day Ago ~12/15/17] Diltiazem HCl [Cartia XT 240mg] 240 mg PO DAILY 12/02/17 [Last Taken 1 Day Ago ~ 12/15/17] Multivitamins [Multivitamin (*)] 1 each PO DAILY 12/02/17 [Last Taken 1 Day Ago ~12/15/17] [place]-3 Fatty Acids [Fish Oil 1000 mg (*)] 1,000 mg PO DAILY 12/02/17 [Last Taken 1 Day Ago ~12/15/17] Herbals/Supplements -Info Only 1 ea PO DAILY 12/03/17 [Last Taken 1 Day Ago ~04/26] - NPO status NPO Status: no food or drink >8 hours - Anes Hx Anes Hx: no prior problems - Smoking Hx Smoking Status: Never smoked Marijuana use: No - Alcohol Use Alcohol Use: Other (Wine 2/day) - Family Anes Hx Family Anes Hx: none ANE Labs/Vital Signs - Labs Result Diagrams: 12/16/17 07:10 12/16/17 07:10 - Vital Signs Height: 182.88 cm Weight: 88.451 kg ANE Physical Exam - Airway Neck exam: FROM Mallampati Score: Class 2 Mouth exam: normal dental/mouth exam - Pulmonary Pulmonary: no respiratory distress, clear to auscultation - Cardiovascular Cardiovascular: regular rate and rhythym, no murmur, rub, or gallop, tachycardia - ASA Status ASA Status: III ANE Anesthesia Plan Anesthesia Plan: general endotracheal anesthesia
[2017-12-16] MEDS ORDERED: ROCURONIUM 100 MG/10 ML VIAL ONE (08:34)
[2017-12-16] MEDS ORDERED: DEXAMETHASONE 4 MG/ML VIAL ONE (08:34)
[2017-12-16] MEDS ORDERED: GLYCOPYRROLATE 0.2 MG/1 ML VIAL ONE (08:34)
[2017-12-16] MEDS ORDERED: fentaNYL 250 MCG/5 ML INJ ONE (08:34)
[2017-12-16] MEDS ORDERED: ROCURONIUM 50 MG/5 ML VIAL ONE (08:34)
[2017-12-16] MEDS ORDERED: PROPOFOL/EMULSION 500 MG/50 ML BOTTLE IV ONE ×2 (08:34)
[2017-12-16] MEDS ORDERED: PHENYLEPHRINE HCL 100 MCG/ML SYR ONE (08:35)
[2017-12-16] MEDS ORDERED: ONDANSETRON 4 MG/2 ML VIAL ONE (08:35)
--- NOTE | 2017-12-16 08:43 | PDGENHP ---
History & Physical Chief Complaint: soa History of Present Illness: recurrent afl, cmp Relevant Physical Exam: s1s2 tach, cta, a03 Cardiorespiratory Assessment: AFL with cardiomyopathy. Recurrent despite amiodarone and dccv. For RF ablation
[2017-12-16] MEDS ORDERED: HEPARIN/DEXTROSE 25,000 UNIT/500 ML BAG ONE (09:17)
[2017-12-16] MEDS ORDERED: PROTAMINE SULFATE 50 MG/5 ML VIAL IVP ONE (10:22)
[2017-12-16] MEDS ORDERED: SUGAMMADEX SODIUM 200 MG/2 ML VIAL IVP ONE (10:26)
[2017-12-16] MEDS ORDERED: ONDANSETRON 4 MG/2 ML VIAL IVP PRN (10:47)
[2017-12-16] MEDS ORDERED: HYDROmorphone HCL/NS 0.5 MG/ML SYR IVP PRN (10:47)
[2017-12-16] MEDS ORDERED: NALOXONE HCL 0.4 MG/ML INJ IVP PRN (10:47)
[2017-12-16] MEDS ORDERED: HYDROCODONE/APAP 5/325 TAB PO PRN (10:47)
[2017-12-16] MEDS ORDERED: fentaNYL 100 MCG/2 ML INJ IVP PRN (10:47)
[2017-12-16] MEDS ORDERED: ACETAMINOPHEN 500 MG TAB PO PRN (10:47)
--- NOTE | 2017-12-16 10:50 | POSTANESTH ---
Post Anesthetic Evaluation Cardiovascular Status: Normal, Stable Respiratory Status: Normal, Stable Level of Consciousness/Mental Status: Can Participate in Eval Pain Control: Adequate, Prn Tx Ordered Nausea/Vomiting Control: Adequate, Prn Tx Ordered Complications Possibly Related to Anesthesia: None Noted (Normal sinus.)
--- NOTE | 2017-12-16 11:15 | EPPROC ---
Electrophysiology Procedure Note: ELECTROPHYSIOLOGIC STUDY AND CATHETER MEDIATED ABLATION FOR SUBEUSTACHIAN ISTHMUS DEPENDENT COUNTERCLOCKWISE ATRIAL FLUTTER: INDICATION: Recurrent atrial flutter Cardiomyopathy, likely tachycardia mediated PROCEDURES PERFORMED: 33894-27 EP evaluation with RA/RV/LA pace/record, with arrhythmia induction 49844-80 EP evaluation with RA/RV pace record, insert/reposition catheter, with arrhythmia induction 76552 SVT ablation 84626 3D mapping Fluoroscopy Catheters & Anesthesia: The patient arrived in the Electrophysiology Laboratory in the fasting state. The right clavicular region, right groin, and left groin area were prepped and draped in the usual sterile manner. Anesthesiologist Dr. Ashley Rhodes administered general anesthesia. Appropriate non-invasive blood pressure, pulse oximetry and end-tidal CO2 monitoring was established. All catheters were placed percutaneously using the modified Seldinger technique , and advanced into position under fluoroscopic guidance. One #7 Argentine deflectable catheter with 10 pairs of electrodes was placed via the left femoral vein into the coronary sinus. One # 7 Argentine Halo catheter was inserted through the L femoral vein and was placed at the tricuspid annulus. Heparin was administered to keep ACT > 250 seconds. Programmed stimulation was performed from the right atrium, coronary sinus ( left atrium) and right ventricle. Parahisian pacing demonstrated all retrograde conduction over the AV node. On arrival to the Electrophysiology Laboratory the patient was in atrial flutter , CL 235 ms . Entrainment mapping from lateral TA, septal TA, proximal CS and distal CS confirmed cavotricuspid isthmus dependent atrial flutter. Post entrainment cardioversion was performed due to low LVEF and SBP in 70s. In preparation for ablation of typical atrial flutter, a high-resolution 3D (3 dimensional) Carto electroanatomical map of the sub-Eustachian isthmus and right atrium was obtained during pacing of the posterolateral coronary sinus. For ablation of typical atrial flutter, Mobi sheath was placed in the right atrium. A #8 Argentine deflectable quadrapolar electrode catheter (2mm-5mm-2mm spacing) with 3.5 mm irrigated tip electrode and location sensor for the Miira mapping system was inserted in the long sheath and advanced to the right atrium. Radiofrequency applications were applied between the tricuspid annulus at 0630 oclock as seen in the SEUN view and the inferior vena cava. This achieved conduction block across the isthmus. Following ablation of the atrial flutter, programmed atrial stimulation was performed in the baseline state . No atrial arrhythmias were inducible post ablation. Post ablation, a high-resolution electroanatomical map of the sub-Eustachian isthmus was obtained during pacing of the posterolateral coronary sinus. This confirmed conduction block across the sub-Eustachian isthmus. Bidirectional block was also confirmed by pacing. Septal to lateral conduction time 155 ms. The catheters were removed. Protamine was administered. Sheaths were removed in the EP lab after applying subcutaneous purse string suture. The patient was transferred to the cardiovascular holding area in stable condition. There were no apparent complications. CONCLUSIONS: 1. Cavotricuspid isthmus dependent counterclockwise atrial flutter. 2. Successful catheter mediated ablation of cavotricuspid isthmus achieving bi -directional conduction block across cavotricuspid isthmus. 3. No atrial arrhythmias inducible post ablation. 4. No apparent complications. Patient Problems: Problems Problem Status Onset Hypoxia Acute CHF (congestive heart failure) Acute
--- NOTE | 2017-12-16 11:27 | CPEKG ---
Heart Rate: 65 RR Interval: 923 P-R Interval: 184 QRSD Interval: 92 QT Interval: 332 QTC Interval: 346 P [place]: 57 QRS [place]: 71 T Wave [place]: 58 EKG Severity - ABNORMAL ECG - EKG Impression: SINUS ARRHYTHMIA, RATE 55-81 EKG Impression: NONSPECIFIC T ABNORMALITIES, ANTERIOR LEADS Electronically Signed By: Arlet Norris 16-Dec-2017 12:03:49
[2017-12-16] MEDS: CARVEDILOL 6.25 MG TAB PO SCH (18:03)
[2017-12-16] MEDS ORDERED: ATORVASTATIN CALCIUM 20 MG TAB PO SCH (21:00)
[2017-12-16] MEDS ORDERED: LISINOPRIL 2.5 MG TAB PO SCH (21:00)
[2017-12-16] MEDS: APIXABAN 5 MG TAB PO SCH (21:07)
[2017-12-17 04:50] LABS: PLATELET COUNT 178 10^3/uL (150-400)
[2017-12-17 04:59] LABS: INR 1.14 (0.83-1.16); PROTIME(PATIENT) 14.8 SEC (12.0-15.0)
[2017-12-17 05:13] LABS: CREATINE KINASE 46 IU/L (0-224)
[2017-12-17 07:52] VITALS: BP 101/61
[2017-12-17] MEDS ORDERED: FUROSEMIDE 40 MG TAB PO SCH (09:00)
[2017-12-17] MEDS ORDERED: Herbals/Supplements -Info Only PO SCH (09:00)
[2017-12-17] MEDS ORDERED: MULTIVITAMINS 1 EACH TAB PO SCH (09:00)
[2017-12-17] MEDS ORDERED: POTASSIUM CL 10 MEQ TAB PO SCH (09:00)
--- NOTE | 2017-12-17 09:00 | CPEKG ---
Heart Rate: 83 RR Interval: 723 P-R Interval: 176 QRSD Interval: 98 QT Interval: 440 QTC Interval: 517 P [place]: 70 QRS [place]: 80 T Wave [place]: 51 EKG Severity - ABNORMAL ECG - EKG Impression: SINUS RHYTHM EKG Impression: NONSPECIFIC T ABNORMALITIES, ANT-LAT LEADS EKG Impression: PROLONGED QT INTERVAL Electronically Signed By: Arlet Norris 17-Dec-2017 11:05:35
[2017-12-17] MEDS: CARVEDILOL 6.25 MG TAB PO SCH (09:15)
[2017-12-17] MEDS: APIXABAN 5 MG TAB PO SCH (09:15)
--- NOTE | 2017-12-17 10:29 | ECHO ---
[email or web address] [address] [address] Main: [phone] Fax: [email or web address] Echocardiogram Name: AMI DALY MR#: [id number] Study Date: 12/17/2017 Study Time: 09:37 AM Date of : 1960 Age: 57 year(s) Height: 182.9 cm (72 in.) Weight: 88.45 kg (195 lb.) BSA: 2.11 m2 Gender: Male Examination: Echo Indication: Post EP study Image Quality: Contrast: Requested by: Naty Ware BP: / Heart Rate: Rhythm: Indication: Post EP study Procedure Staff Sql Data Architect: Niru Palma [facility] Reading Physician: Yoni Stafford MD Requesting Provider: Conclusions: Mildly dilated left ventricle. The ejection fraction is estimated to be 50-55 %. The left atrium is mildly to moderately dilated. The right atrium is mildly dilated. Mild mitral valve regurgitation is present. Mild tricuspid regurgitation is present. The pulmonary artery pressure is normal. No pericardial effusion. Measurements: Chambers Valvular Assessment AV/MV Valvular Assessment TV/PV Normal Normal Normal Name Value Range Name Value Range Name Value Range Ao Vidya (MM): 3.4 cm (2.2 cm-3.7 AV Vmax: 1.54 m/s (1 m/s-1.7 TR Vmax: 2.77 mm/s ( - ) cm) m/s) TR PGmax: 31 mmHg ( - ) IVSd (2D): 0.8 cm (0.6 cm-1.1 AV maxP mmHg ( - ) syst. PAP: 36 mmHg ( - ) cm) AV meanP mmHg ( - ) LVDd (2D): 5.8 cm (4.2 cm-5.9 MV E Vmax: 0.88 m/s ( - ) cm) MV A Vmax: 0.82 m/s ( - ) LVDs (2D): 4.6 cm (2.1 cm-4 MV E/A: 1.07 ( - ) cm) LVPWd (2D): 0.9 cm (0.6 cm-1 cm) LVEF (BP): 53 % (>=55 %) EF Range: 50-55 % Continued Measurements: Chambers Valvular Assessment AV/MV Valvular Assessment TV/PV Name Value Name Value Name Value Patient: AMI DALY Study Date: 12/17/2017 Page 1 of 2 09:37 AM LADs: 5.3 cm MV E/E' Septal: 9.10 CVP (est.): 5 mmHg LADs Lon.7 cm MV E/E' Lateral: 7.80 LA Area: 30.7 cm2 Findings: Left Ventricle: Mildly dilated left ventricle. No LV hypertrophy. The ejection fraction is estimated to be 50-55 %. Right Ventricle: Normal size right ventricle. Left Atrium: The left atrium is mildly to moderately dilated. Atrial septal bowing from left to right. Right Atrium: The right atrium is mildly dilated. Mitral Valve: The mitral valve is normal in appearance and function. Mild mitral valve regurgitation is present. Aortic Valve: Minimal aortic cusp calcification is noted. Aortic valve opens well.. Tricuspid Valve: The tricuspid valve is normal in appearance and function. Mild tricuspid regurgitation is present. The pulmonary artery pressure is normal. Pulmonic Valve: The pulmonic valve is normal in appearance and function. Mild pulmonic valve regurgitation is noted. Aorta: The aorta is normal. Pericardium: No pericardial effusion. (No Signature Object) Patient: AMI DALY Study Date: 12/17/2017 Page 2 of 2 09:37 AM D:_[id number]
--- NOTE | 2017-12-17 10:45 | ASDISCHSUM ---
Discharge Information Plan Status:Home with No Needs Medically Cleared to Leave:12/17/2017 Discharge Date:12/17/2017 CM D/C Disposition:Home, Routine, Self-Care ADT D/C Disposition:Home, Routine, Self-Care Projected Discharge Date:12/17/2017 Transportation at D/C: Discharge Delay Reason: Follow-Up Date:12/17/2017 Discharge Slot: Final Diagnosis: Placement Information Patient Contact Information Contact Name:REYNA Relationship: Address:[address] [place] [address] [address] Work Phone: City:[place] Alternate Phone: State/Zip Code:[place] [address] Email: Financial Information Financial Class:HMO and PPO Plans Primary Plan Desc:[employer] [place] [employer] Primary Plan Number:[id number] Secondary Plan Desc: Secondary Plan Number: Assessment Information Intervention Information
--- NOTE | 2017-12-17 13:01 | GDS ---
[f rep st] DISCHARGE SUMMARY DISCHARGE DIAGNOSES: 1. Atrial flutter status post atrial flutter ablation. 2. Atrial fibrillation. 3. Cardiomyopathy, likely tachycardic induced. His EF improved from 20% preablation to 50% postabla tion. HISTORY OF PRESENT ILLNESS: For a detailed H and P, please see prior dictation. Briefly, the patien paige is a 57-year-old male with a history of atrial flutter. He had not been feeling well since and was seen by Dr. Ho in November. He underwent a CHERELLE guided cardioversion and had pulmonary stephanie ma that resolved with diuresis. He presented back to our office in December and was found to be back in atrial flutter, and an echo showed his ejection fraction to have declined to 25% to 30%. He was see n by Dr. Saurabh keith, whose prior EKGs were reviewed. He had been found to have both atrial flutter and atrial fibrillation. Ultimately, they decided to proceed with an EP study and ablation for atri al flutter only. HOSPITAL COURSE: This was done on December 16 and was successful. The patient denied any chest discom fort or palpitations postprocedure. Echocardiogram the following day showed an improvement in his ejection fraction from 20% to 50%. His EKG the following day revealed normal sinus rhythm. His troponin peaked at 0.222. He was monitored on telemetry and remained in normal sinus rhythm. His EKG does show ST-T wave changes diffusely. Physical examination: In general, the patient appears in no acute distress. Vitals: Blood pressure 101/61, heart rate 81, oxygen saturation of 94% on room air. Afebrile. Lungs clear to auscultation . No wheezes, rhonchi, or crackles auscultated. Cardiac: Regular rate and rhythm, without any murm urs, rubs, or gallops appreciated. Extremities: He has pea-sized abnormality of the left groin, wit hout any significant hematoma or bleeding. His groin is soft around the pea-sized abnormality. He d enies any significant discomfort of the groins. DISCHARGE MEDICATIONS: His medications have been adjusted. He will begin Coreg 6.25 mg twice daily. Diltiazem and digoxin have been discontinued. He is to continue Eliquis 5 mg twice daily, potassiu m 10 mEq daily, lisinopril 2.5 mg daily, Lasix 40 mg daily, herbal supplements daily, Lipitor 20 mg d aily, fish oil 1000 mg daily, multivitamin daily. PLAN: The patient is currently stable ready for discharge home. He has been given groin precautions . He is scheduled for an echo on 01/02 at 9:15 at our office. He is also scheduled to follow up bouchra Wiley on January 08 at 2:30. He is aware that he is to continue Coreg and lisinopril for his car diomyopathy. He will continue Eliquis for CVA prophylaxis. Greater than 30 minutes was spent coordinating the patient's care today. /[id number]/MODL
== END 2017-12-17 11:42 | disposition home or self-care (01) ==
LOC: FCATH 06:44 → F2W 10:47
PROVIDERS: ADMIT Internal Medicine Cardiovascular Disease; ATTEND Internal Medicine Cardiovascular Disease
PROC: B245ZZ4 Ultrasonography of Left Heart, Transesophageal (ICD-10-PCS; principal; 2017-12-16)
PROC: 02563ZZ Destruction of Right Atrium, Percutaneous Approach (ICD-10-PCS; principal; 2017-12-16)
PROC: 02K83ZZ Map Conduction Mechanism, Percutaneous Approach (ICD-10-PCS; principal; 2017-12-16)
PROC: 5A1213Z Performance of Cardiac Pacing, Intermittent (ICD-10-PCS; principal; 2017-12-16)
DX: I48.92 Unspecified atrial flutter (principal); I48.0 Paroxysmal atrial fibrillation; I42.9 Cardiomyopathy, unspecified; Z79.01 Long term (current) use of anticoagulants; Z87.891 Personal history of nicotine dependence
CPT/HCPCS: 93005; 93306; 93312; 93613; 93621; 93653; G0378; C1731; C1732; C1766; J1100; J1644; J2250; J2370; J2405; J2704; J2720; J3010

== ENCOUNTER 2017-12-18 18:42 | Emergency (ER) | payer OTHER ==
--- NOTE | 2017-12-18 19:01 | EDPHY ---
H & P Stated Complaint: L groin hematoma s/p ablation Time Seen by Provider: 12/18/17 18:59 HPI/ROS: HPI: This is a 49-year-old male who presents with Chief Complaint: L groin hematoma s/p ablation Location: Left groin Quality: Hematoma Duration: 24 hr Signs and Symptoms: no fever, no nausea, no vomiting, no hematemesis, no blood in stool, no abdominal bloating, no diarrhea, no back pain, no urinary symptoms , + testicular/groin pain, no indigestion, no chest pain, no shortness of breath Timing: Acute, worsening Severity: [id number]-[id number] Context: Patient has a history AFib, a flutter, status post cardiac ablation on Saturday by Dr. Wiley; On . Discharge home yesterday afternoon. Patient reports that per his instructions he has been walking but not performing any strenuous activity. Yesterday evening he noticed mild bruising in his left groin today the area has extended and now there is mild to moderate pain that worsens with palpation. He also states that he has left groin or testicular pain. Denies any penile discharge. Denies any blood in his urine. Modifying Factors: None Comment: ROS: see HPI Constitutional: No fever, no chills, no weight loss Eyes: No blurred vision Respiratory: No shortness of breath, no cough Cardiovascular: No chest pain, no palpitations Gastrointestinal: No nausea, no vomiting, no diarrhea, no hematemesis, no blood in stool Genitourinary: No dysuria, no blood in urine Extremities: No myalgias, no edema Neurologic: No weakness, no numbness Skin: No rashes, no petechiae Hematologic: No bruising, no bleeding MEDICAL/SURGICAL/SOCIAL HISTORY: Medical history: A-fib, a-flutter, high cholesterol, acute heart failure cardiac ablation Surgical history: Denies Social history: . Employed. CONSTITUTIONAL: Polite and cooperative adult male, awake and alert, no obvious distress HEENT: Atraumatic and normocephalic, PERRL, EOMI. Tympanic membranes clear. Oropharynx clear, no exudate and moist pink mucosa. Airway patent. No lymphadenopathy. No meningismus. Cardiovascular: Normal S1/S2, regular rate, regular rhythm, without murmur rub or gallop. PULMONARY/CHEST: Symmetrical and nontender. Clear to auscultation bilaterally. Good air movement. No accessory muscle usage. Male : circumcised penis, bilateral descended testes, no testicular swelling, no testicular masses, no penile discharge, no lesions, negative Prehn's sign. Left groin; inguinal canal tenderness to palpation with black and yellow ecchymosis extending into the left upper thigh. No hernia appreciated. ABDOMEN: Soft, nondistended, nontender, no rebound, no guarding, no peritoneal signs, no masses or organomegaly. No CVAT. EXTREMITIES: 2/2 pulses, strength 5/5, no deformities, no clubbing, no cyanosis or edema. NEUROLOGICAL: no focal neuro deficits. GCS 15. SKIN: Warm and dry, no erythema. no rash. Good capillary refill. Source: Patient Exam Limitations: No limitations - Personal History Current Tetanus/Diphtheria Vaccine: Yes Current Tetanus Diphtheria and Acellular Pertussis (TDAP): Yes - Medical/Surgical History Hx Asthma: No Hx Chronic Respiratory Disease: No Hx Diabetes: No Hx Cardiac Disease: Yes Hx Renal Disease: No Hx Cirrhosis: No Hx Alcoholism: No Hx HIV/AIDS: No Hx Splenectomy or Spleen Trauma: No Other PMH: A-fib, a-flutter, high cholesterol, acute heart failure cardiac ablation, - Social History Smoking Status: Never smoked Constitutional: Initial Vital Signs Temperature (C) 37.3 C 12/18/17 18:52 Heart Rate 88 12/18/17 18:52 Respiratory Rate 16 12/18/17 18:52 Blood Pressure 111/76 12/18/17 18:52 O2 Sat (%) 96 12/18/17 18:52 O2 Delivery Mode Room Air Allergies/Adverse Reactions: No Known Allergies Allergy (Unverified 12/18/17 18:51) Home Medications: Medication Instructions Recorded Atorvastatin Calcium [Lipitor 20 20 mg PO HS 12/02/17 mg (*)] C/E/Zn/Cu/OM3/DHA/EPA/LUT/ZEAX 1 each PO DAILY 12/02/17 [Preservision Areds 2 Softgel] Multivitamins [Multivitamin (*)] 1 each PO DAILY 12/02/17 [place]-3 Fatty Acids [Fish Oil 1000 1,000 mg PO DAILY 12/02/17 mg (*)] Herbals/Supplements -Info Only 1 ea PO DAILY 12/03/17 Furosemide [Lasix 40 MG (*)] 40 mg PO DAILY #30 tab 12/07/17 Lisinopril [Zestril 2.5 mg (*)] 2.5 mg PO HS #30 tab 12/07/17 Potassium Chloride 10 meq PO DAILY #30 tab.er.prt 12/07/17 Apixaban [Eliquis] 5 mg PO BID #60 tab 12/17/17 Carvedilol [Coreg (*)] 6.25 mg PO BIDMEAL #60 tab 12/17/17 Medical Decision Making - Diagnostics Imaging Results: Imaging Impressions Pelvis CT 12/18/17 19:08 Impression: No evidence of catheterization access site complication. No retroperitoneal hematoma. Findings were communicated by telephone with Dr. Paola Davis at 12/18/2017 21 :25 ED Course/Re-evaluation: Labs including coags and CT pelvis scan ordered No signs of neurovascular compromise/tenting of skin/compartment syndrome/ extremities and joints examined above and below area of concern and are neurovascularly intact. 1947: Labs reviewed and show stable H&H and coags are normal Called by radiologist who advised that CT CT pelvis scan shows no signs of hematoma/retroperitoneal expansion/abscess. This patient was seen under the supervision of my secondary supervising physician. I evaluated care for this patient independently. Differential Diagnosis: Differential diagnosis includes but is not limited to inflammation, hematoma, retroperitoneal extension. - Data Points Laboratory Results: Laboratory Results 12/18/17 19:10 12/18/17 19:10 12/18/17 12/18/17 12/18/17 19:10 19:10 19:10 WBC 8.00 10^3/uL 10^3/uL (3.80-9.50) RBC 4.17 10^6/uL L 10^6/uL (4.40-6.38) Hgb 13.6 g/dL L g/dL (13.7-17.5) Hct 39.1 % L % (40.0-51.0) MCV 93.8 fL fL (81.5-99.8) MCH 32.6 pg pg (27.9-34.1) MCHC 34.8 g/dL g/dL (32.4-36.7) RDW 12.7 % % (11.5-15.2) Plt Count 179 10^3/uL 10^3/uL (150-400) MPV 9.8 fL fL (8.7-11.7) Neut % (Auto) 47.4 % % (39.3-74.2) Lymph % (Auto) 43.1 % % (15.0-45.0) [place] % (Auto) 6.5 % % (4.5-13.0) Eos % (Auto) 2.1 % % (0.6-7.6) Baso % (Auto) 0.6 % % (0.3-1.7) Nucleat RBC Rel Count 0.0 % % (0.0-0.2) Absolute Neuts (auto) 3.79 10^3/uL 10^3/uL (1.70-6.50) Absolute Lymphs (auto) 3.45 10^3/uL H 10^3/uL (1.00-3.00) Absolute Monos (auto) 0.52 10^3/uL 10^3/uL (0.30-0.80) Absolute Eos (auto) 0.17 10^3/uL 10^3/uL (0.03-0.40) Absolute Basos (auto) 0.05 10^3/uL 10^3/uL (0.02-0.10) Absolute Nucleated RBC 0.00 10^3/uL 10^3/uL (0-0.01) Immature Gran % 0.3 % % (0.0-1.1) Immature Gran # 0.02 10^3/uL 10^3/uL (0.00-0.10) PT 13.9 SEC SEC (12.0-15.0) INR 1.05 (0.83-1.16) APTT 27.3 SEC SEC (23.0-38.0) Sodium 138 mEq/L mEq/L (135-145) Potassium 4.4 mEq/L mEq/L (3.5-5.2) Chloride 102 mEq/L mEq/L (97-110) Carbon Dioxide 23 mEq/l mEq/l (22-31) Anion Gap 13 mEq/L mEq/L (8-16) BUN 21 mg/dL mg/dL (7-23) Creatinine 0.9 mg/dL mg/dL (0.7-1.3) Estimated GFR > 60 Glucose 101 mg/dL H mg/dL (70-100) Calcium 9.1 mg/dL mg/dL (8.5-10.4) Departure - Departure Disposition: Home, Routine, Self-Care Clinical Impression: Chronic anticoagulation, History of cardiac radiofrequency ablation Hematoma of groin Qualifiers: Encounter type: initial encounter Qualified Code(s): S30.1XXA - Contusion of abdominal wall, initial encounter Condition: Good Instructions: Hematoma (ED) Additional Instructions: Please avoid any strenuous activities and follow the discharge instructions provided by Cardiology. Apply ice for 30 minutes at a time; 2-3 times per day for the next 1-2 days. Keep follow-up appointment with Cardiology. Return to the ER immediately if you experience redness, red streaks, have fevers /chills, flu like symptoms, limited range of motion, or any other symptoms that concern you. Referrals: Duglas Chaudhari MD [Primary Care Provider] - As per Instructions Silvano Wiley MD [Medical Doctor] - 01/08/18 2:30 pm
[2017-12-18 19:22] LABS: PLATELET COUNT 179 10^3/uL (150-400)
[2017-12-18 19:31] LABS: INR 1.05 (0.83-1.16); PROTIME(PATIENT) 13.9 SEC (12.0-15.0)
[2017-12-18] MEDS ORDERED: IOPAMIDOL (ISOVUE-300) 100 ML BTL ONE (19:36)
[2017-12-18 21:32] VITALS: BP 114/69
== END 2017-12-18 21:36 | disposition home or self-care (01) ==
DX: I97.638 Postprocedural hematoma of a circulatory system organ or structure following other circulatory system procedure (principal); Z79.01 Long term (current) use of anticoagulants; Z98.890 Other specified postprocedural states
CPT/HCPCS: Q9967